=== PATIENT | male | born 1955 | race African-American/Black ===

== ENCOUNTER 2018-11-12 16:50 | Inpatient (IN) | payer OTHER ==
[2018-11-12] MEDS ORDERED: IPRATROPIUM/ALBUTEROL 0.5-2.5 MG/3 ML AMPUL NEB ONE ×2 (17:29→18:33)
--- NOTE | 2018-11-12 17:31 | ER Document Report ---
ED Medical Screen (RME) - General Chief Complaint: Weakness Stated Complaint: WEAKNESS Time Seen by Provider: 11/12/18 17:28 Mode of Arrival: Ambulatory Information source: Patient TRAVEL OUTSIDE OF THE [place] IN LAST 30 DAYS: No - HPI Patient complains to provider of: YOUNG Notes: 11/12/18 17:29 Patient here with complaints of cough for very long time and feeling short of breath for the last 2 days. No chest pain. Patient is a smoker. He denies any recent long trips or surgeries, leg pain or leg swelling, active cancer, history of DVT or PE. Exam Patient with some tachypnea slight increased work of breathing. Expiratory wheezing noted throughout with some crackles in the bases. Tachycardia. Plan CBC, CMP, troponin, CPK, CK-MB, chest x-ray, EKG duo nebs. Patient was noted to be hypoxic in the lower 80s, he was placed on 4 L nasal cannula, his O2 saturations did improve to the lower 90s. Patient was taken immediately back to her room for further evaluation and may An initial examination was made on the patient as part of the triage process, and it was determined a more comprehensive evaluation was necessary. Initial labs were ordered and patient was transferred to another provider in the ED who assumed care and finished evaluation and plan. - Related Data Allergies/Adverse Reactions: No Known Allergies Allergy (Unverified 11/12/18 16:52) Physical Exam - Vital signs Vitals: Temp Pulse Resp BP Pulse Ox 98.7 F 124 H 26 H 124/78 83 L 11/12/18 17:15 11/12/18 17:15 11/12/18 17:15 11/12/18 17:15 11/12/18 17:15 Course - Vital Signs Vital signs: Temp Pulse Resp BP Pulse Ox 98.7 F 124 H 26 H 124/78 83 L 11/12/18 17:15 11/12/18 17:15 11/12/18 17:15 11/12/18 17:15 11/12/18 17:15
--- NOTE | 2018-11-12 18:12 | RADIOLOGY REPORT (SQ) ---
EXAM DESCRIPTION: CHEST SINGLE VIEW COMPLETED DATE/TIME: 11/12/2018 5:47 pm REASON FOR STUDY: hypoxia COMPARISON: None. EXAM PARAMETERS: NUMBER OF VIEWS: One view. TECHNIQUE: Single frontal radiographic view of the chest acquired. RADIATION DOSE: NA LIMITATIONS: None. FINDINGS: LUNGS AND PLEURA: Ill-defined opacification in the lung bases, right more than left. MEDIASTINUM AND HILAR STRUCTURES: No masses. Contour normal. HEART AND VASCULAR STRUCTURES: Heart normal in size. Normal vasculature. BONES: No acute findings. HARDWARE: None in the chest. OTHER: No other significant finding. IMPRESSION: Cannot exclude bilateral pneumonia. TECHNICAL DOCUMENTATION: JOB ID: [id number] [employer]- All Rights Reserved Reading location - IP/workstation name: [email or web address]
[2018-11-12 18:14] LABS: HEMATOCRIT 37.1 % (37.9-51.0); MEAN CORPUSCULAR HEMOGLOBIN 30.5 pg (27.0-33.4); MEAN CORPUSCULAR VOLUME 87 fl (80-97); PLATELET COUNT 189 10^3/uL (150-450); RED BLOOD COUNT 4.25 10^6/uL (4.35-5.55); WHITE BLOOD COUNT 12.8 10^3/uL (4.0-10.5)
[2018-11-12 18:34] LABS: ABSOLUTE LYMPHOCYTES# (MANUAL) 0.9 10^3/uL (0.5-4.7); ABSOLUTE MONOCYTES # (MANUAL) 0.5 10^3/uL (0.1-1.4); ABSOLUTE NEUTROPHILS# (MANUAL) 11.4 10^3/uL (1.7-8.2); BASOPHILS % (MANUAL) 0 % (0-2); EOSINOPHILS % (MANUAL) 0 % (0-6); LYMPHOCYTES % (MANUAL) 6 % (13-45); METAMYELOCYTES % (MANUAL) 1 % (0); MONOCYTES % (MANUAL) 4 % (3-13); SEGMENTED NEUTROPHILS % (MAN) 73 % (42-78); TOTAL CELLS COUNTED 100
[2018-11-12] MEDS ORDERED: METHYLPREDNISOLONE INJ 125 MG/2 ML SDV IV ONE ×2 (18:34→23:00)
[2018-11-12] MEDS ORDERED: CEFTRIAXONE INJ 1000 MG VIAL IV ONE (18:34)
[2018-11-12] MEDS ORDERED: NORMAL SALINE 1000 ML 1,000 ML IV ONE (18:34)
[2018-11-12 18:36] LABS: ANISOCYTOSIS 1+; TOXIC VACUOLATION PRESENT
[2018-11-12 18:37] LABS: PLATELET COMMENT ADEQUATE; PLATELET LARGE PRESENT
[2018-11-12 18:38] LABS: TOXIC GRANULATION SLIGHT
[2018-11-12 18:39] LABS: BAND NEUTROPHILS % (MANUAL) 15 % (3-5)
--- NOTE | 2018-11-12 19:49 | EKG REPORT ---
SEVERITY:- ABNORMAL ECG - SINUS TACHYCARDIA BORDERLINE LEFT AXIS DEVIATION BORDERLINE R WAVE PROGRESSION, ANTERIOR LEADS PROLONGED QT INTERVAL : Confirmed by: Gregoria Mathew MD 12-Nov-2018 19:48:36
--- NOTE | 2018-11-12 20:00 | ER Document Report ---
ED General - General Chief Complaint: Weakness Stated Complaint: WEAKNESS Time Seen by Provider: 11/12/18 17:28 Mode of Arrival: Ambulatory Information source: Patient, Relative Notes: 63-year-old male with hypertension presents with complaint of weakness, productive cough and shortness of breath. Patient states cough has been present for several weeks but he became short of breath over the last 2 days. Upon arrival patient was found to be hypoxic and is currently requiring 4 L of oxygen to maintain appropriate oxygen saturation. Patient does continue to smoke approximately 1 pack/day. is at the bedside and states patient has had decrease in appetite. TRAVEL OUTSIDE OF THE [place] IN LAST 30 DAYS: No - HPI Onset: Other Onset/Duration: Persistent, Worse Quality of pain: No pain Associated symptoms: Productive cough, Shortness of breath, Weakness. denies: Chest pain, Fever, Sweating Exacerbated by: Walking, Coughing Relieved by: Denies Similar symptoms previously: No Recently seen / treated by doctor: No - Related Data Allergies/Adverse Reactions: No Known Allergies Allergy (Unverified 11/12/18 16:52) Past Medical History - General Information source: Patient - Social History Smoking Status: Current Every Day Smoker Frequency of alcohol use: None Drug Abuse: None Lives with: Family, Spouse/Significant other Family History: Reviewed & Not Pertinent Patient has suicidal ideation: No Patient has homicidal ideation: No - Past Medical History Cardiac Medical History: Reports: Hx Hypertension Renal/ Medical History: Denies: Hx Peritoneal Dialysis Review of Systems - Review of Systems Notes: REVIEW OF SYSTEMS: CONSTITUTIONAL : Denies fever, chills, or sweats. Denies recent illness. Denies weight loss, recent hospitalizations. EENT: Denies visual changes, eye pain. Denies sore throat, oral lesions, difficulty swallowing. CARDIOVASCULAR: Denies chest pain. Denies palpitations. Denies lower extremity edema. RESPIRATORY: + cough. + shortness of breath, wheezing. GASTROINTESTINAL: Denies abdominal pain or distention. Denies nausea, vomiting, or diarrhea. Denies blood in vomitus, stools, or per rectum. Denies black, tarry stools. Denies constipation. GENITOURINARY: Denies difficulty urinating, painful urination, frequency, blood in urine, testicular pain or penile discharge. MUSCULOSKELETAL: Denies back or neck pain or stiffness. Denies joint pain or swelling. SKIN: Denies rash, lesions or sores. HEMATOLOGIC : Denies easy bruising or bleeding. LYMPHATIC: Denies swollen glands. NEUROLOGICAL: Denies confusion or altered mental status. Denies loss of consciousness. Denies dizziness or lightheadedness. Denies headache. Denies paralysis. Denies problems difficulty with ambulation, slurred speech. Denies sensory loss, numbness, or tingling. Denies seizures. PSYCHIATRIC: Denies anxiety or stress. Denies depression, suicidal ideation, or Physical Exam - Vital signs Vitals: Temp Pulse Resp BP Pulse Ox 98.7 F 124 H 26 H 124/78 83 L 11/12/18 17:15 11/12/18 17:15 11/12/18 17:15 11/12/18 17:15 11/12/18 17:15 - Notes Notes: PHYSICAL EXAMINATION: GENERAL: Well-appearing, well-nourished and in no acute distress. HEAD: Atraumatic, normocephalic. EYES: Pupils equal round and reactive to light, extraocular movements intact, sclera anicteric, conjunctiva are normal. ENT: Nares patent, oropharynx clear without exudates. Moist mucous membranes. NECK: Normal range of motion, supple without lymphadenopathy LUNGS: Bilateral rhonchi, no increased work of breathing, no accessory muscle use, on nasal cannula, initially hypoxic HEART: Tachycardic, regular rhythm without murmurs. ABDOMEN: Soft, nontender, nondistended abdomen. No guarding, no rebound. No masses appreciated. Musculoskeletal: Normal range of motion, no pitting or edema. No cyanosis. NEUROLOGICAL: Cranial nerves grossly intact. Normal speech, normal gait. Normal sensory, motor exams PSYCH: Normal mood, normal affect. SKIN: Warm, Dry, normal turgor, no rashes or lesions noted. Course - Re-evaluation Re-evalutation: Laboratory 11/12/18 11/12/18 11/12/18 17:49 17:49 17:49 WBC 12.8 H RBC 4.25 L Hgb 13.0 L Hct 37.1 L MCV 87 MCH 30.5 MCHC 35.0 RDW 16.0 H Plt Count 189 Total Counted 100 Seg Neutrophils % Not Reportable Seg Neuts % (Manual) 73 Band Neutrophils % 15 H Lymphocytes % Not Reportable Lymphocytes % (Manual) 6 L Atypical Lymphs % 1 Monocytes % Not Reportable Monocytes % (Manual) 4 Eosinophils % Not Reportable Eosinophils % (Manual) 0 Basophils % Not Reportable Basophils % (Manual) 0 Metamyelocytes % 1 H Absolute Neutrophils Not Reportable Abs Neuts (Manual) 11.4 H Absolute Lymphocytes Not Reportable Abs Lymphs (Manual) 0.9 Absolute Monocytes Not Reportable Abs Monocytes (Manual) 0.5 Absolute Eosinophils Not Reportable Absolute Eos (Manual) 0.0 Absolute Basophils Not Reportable Abs Basophils (Manual) 0.0 Toxic Granulation SLIGHT Toxic Vacuolation PRESENT Large Platelets PRESENT Platelet Comment ADEQUATE Anisocytosis 1+ Sodium Cancelled Potassium Cancelled Chloride Cancelled Carbon Dioxide Cancelled Anion Gap Cancelled BUN Cancelled Creatinine Cancelled Est GFR ( Amer) Cancelled Est GFR (Non-Af Amer) Cancelled Glucose Cancelled Calcium Cancelled Total Bilirubin Cancelled Direct Bilirubin Cancelled Neonat Total Bilirubin Cancelled Neonat Direct Bilirubin Cancelled Neonat Indirect Bili Cancelled AST Cancelled ALT Cancelled Alkaline Phosphatase Cancelled Creatine Kinase Cancelled CK-MB (CK-2) Cancelled Troponin I Cancelled Total Protein Cancelled Albumin Cancelled 11/12/18 11/12/18 19:32 19:32 WBC RBC Hgb Hct MCV MCH MCHC RDW Plt Count Total Counted Seg Neutrophils % Seg Neuts % (Manual) Band Neutrophils % Lymphocytes % Lymphocytes % (Manual) Atypical Lymphs % Monocytes % Monocytes % (Manual) Eosinophils % Eosinophils % (Manual) Basophils % Basophils % (Manual) Metamyelocytes % Absolute Neutrophils Abs Neuts (Manual) Absolute Lymphocytes Abs Lymphs (Manual) Absolute Monocytes Abs Monocytes (Manual) Absolute Eosinophils Absolute Eos (Manual) Absolute Basophils Abs Basophils (Manual) Toxic Granulation Toxic Vacuolation Large Platelets Platelet Comment Anisocytosis Sodium 116.6 L* Potassium 3.7 Chloride 84 L Carbon Dioxide 19 L Anion Gap 14 BUN 8 Creatinine 0.44 L Est GFR ( Amer) > 60 Est GFR (Non-Af Amer) > 60 Glucose 128 H Calcium 8.6 Total Bilirubin 1.1 Direct Bilirubin 0.6 H Neonat Total Bilirubin Not Reportable Neonat Direct Bilirubin Not Reportable Neonat Indirect Bili Not Reportable AST 78 H ALT 39 Alkaline Phosphatase 200 H Creatine Kinase 217 H CK-MB (CK-2) 1.78 Troponin I 0.025 Total Protein 6.8 Albumin 2.9 L Chest X-Ray 11/12/18 17:28 IMPRESSION: Cannot exclude bilateral pneumonia. Chest/Abdomen CTA 11/12/18 20:00 IMPRESSION: Negative for pulmonary embolus, thoracic aortic aneurysm, or dissection. Extensive reticulonodular changes bilaterally consistent with small/reactive airway disease. More dense consolidative changes in the lung bases, likely reflecting pneumonia. Recommend follow-up to ensure resolution. Mild emphysematous changes. Partial visualization of branching lucencies in the liver, likely reflecting pneumobilia. Portal venous gas is felt unlikely, correlate with any history of instrumentation. TECHNICAL DOCUMENTATION: Quality ID # 436: Final reports with documentation of one or more dose reduction techniques (e.g., Automated exposure control, adjustment of the mA and/or kV according to patient size, use of iterative reconstruction technique) copyright 2011 [employer]- All Rights Reserved Temp Pulse Resp BP Pulse Ox 98.7 F 124 H 31 H 114/84 91 L 11/12/18 17:15 11/12/18 17:15 11/13/18 02:01 11/13/18 02:00 11/13/18 01:46 11/13/18 02:31 63-year-old male with hypertension presents with complaint of weakness, productive cough and shortness of breath. Patient states cough has been present for several weeks but he became short of breath over the last 2 days. Upon arrival patient was found to be hypoxic. Patient was placed on nasal cannula and wax pumper. Patient did receive breathing treatments, ceftriaxone, IV fluids. CBC does show a leukocytosis with a bandemia. CMP does show hyponatremia with a sodium of 116. Patient also has mild elevation in his liver enzymes. Patient and family did not inform me that the patient is a daily drinker. Nursing reported that the patient drinks 1-240 ounce beers daily. Upon my exam he is alert, awake, without tremors or tachycardia. Patient did receive thiamine, folic acid and Valium during his ED course. Patient was accepted for admission to the [facility] by Dr. Stanton. During the patient's ED course he continued to be hypoxic despite nasal cannula and he was placed on CPAP which did improve his oxygenation. He has had several episodes of hypoxia which self resolve when the patient is sat up and stimulated. VBG is within normal limits. CTA was obtained and showed no evidence of PE, does show pneumonia. Patient has not had any hospitalizations within the last 90 days. - Vital Signs Vital signs: Temp Pulse Resp BP Pulse Ox 98.7 F 124 H 34 H 84/59 L 91 L 11/12/18 17:15 11/12/18 17:15 11/13/18 01:05 11/13/18 01:05 11/13/18 01:05 - Laboratory Result Diagrams: 11/12/18 17:49 11/12/18 19:32 Laboratory results interpreted by me: 11/12/18 11/12/18 17:49 19:32 WBC 12.8 H RBC 4.25 L Hgb 13.0 L Hct 37.1 L RDW 16.0 H Band Neutrophils % 15 H Lymphocytes % (Manual) 6 L Metamyelocytes % 1 H Abs Neuts (Manual) 11.4 H Sodium 116.6 L* Chloride 84 L Carbon Dioxide 19 L Creatinine 0.44 L Glucose 128 H Direct Bilirubin 0.6 H AST 78 H Alkaline Phosphatase 200 H Creatine Kinase 217 H Albumin 2.9 L - Diagnostic Test Radiology reviewed: Image reviewed, Reports reviewed - EKG Interpretation by Me EKG shows normal: Sinus rhythm Rate: Tachycardia When compared to previous EKG there are: Previous EKG unavailable Critical Care Note - Critical Care Note Total time excluding time spent on procedures (mins): 45 - Minutes of critical care time spent in direct contact evaluating and reevaluating the patient, treating symptoms, reviewing labs and studies and speaking with family and consultants excluding any procedures Discharge - Discharge Clinical Impression: Hypoxia, Hyponatremia, Hypoalbuminemia, Bandemia, Acute respiratory failure with hypoxia, Tobacco use disorder, severe, dependence Acute respiratory failure Qualifiers: Respiratory failure complication: hypoxia Qualified Code(s): J96.01 - Acute respiratory failure with hypoxia Pneumonia Qualifiers: Pneumonia type: due to unspecified organism Laterality: bilateral Lung location: unspecified part of lung Qualified Code(s): J18.9 - Pneumonia, unspecified organism Alcohol dependence Qualifiers: Substance use status: unspecified alcohol-induced disorder Qualified Code(s): F10.29 - Alcohol dependence with unspecified alcohol-induced disorder Condition: Fair Disposition: ADMITTED INPATIENT Admitting Provider: Maximino (Hospitalist) Unit Admitted: [facility]
[2018-11-12 20:15] LABS: ALANINE AMINOTRANSFERASE 39 U/L (21-72); ALBUMIN 2.9 g/dL (3.5-5.0); ALKALINE PHOSPHATASE 200 U/L (38-126); ANION GAP 14 (5-19); ASPARTATE AMINO TRANSFERASE 78 U/L (17-59); BILIRUBIN,DIRECT 0.6 mg/dL (0.0-0.4); BILIRUBIN,TOTAL 1.1 mg/dL (0.2-1.3); BLOOD UREA NITROGEN 8 mg/dL (7-20); CALCIUM 8.6 mg/dL (8.4-10.2); CARBON DIOXIDE 19 mmol/L (22-30); CHLORIDE 84 mmol/L (98-107); CREATINE KINASE 217 U/L (55-170); GLUCOSE 128 mg/dL (75-110); POTASSIUM 3.7 mmol/L (3.6-5.0); TOTAL PROTEIN 6.8 g/dL (6.3-8.2)
[2018-11-12 20:24] LABS: SODIUM 116.6 mmol/L (137-145)
[2018-11-12 20:25] LABS: CREATINE KINASE MB 1.78 ng/mL (<4.55); TROPONIN I 0.025 ng/mL
[2018-11-12 21:37] LABS: VENOUS BLOOD BASE EXCESS -2.6 mmol/L; VENOUS BLOOD HCO3 22.4 mmol/L (20-32); VENOUS BLOOD PCO2 39.9 mmHg (35-63); VENOUS BLOOD PH 7.37 (7.30-7.42)
[2018-11-12] MEDS ORDERED: MAG HYDROX/AL HYDROX/SIMETH SUSP 30 ML UDCUP PO PRN (22:02)
[2018-11-12] MEDS ORDERED: ONDANSETRON HCL INJ/PF 4 MG/2 ML SDV IV PRN (22:02)
[2018-11-12] MEDS ORDERED: NORMAL SALINE 1000 ML 1,000 ML IV PRN (22:02)
[2018-11-12] MEDS ORDERED: MAGNESIUM HYDROXIDE SUSP 30 ML UDCUP PO PRN (22:02)
[2018-11-12] MEDS ORDERED: ZOLPIDEM TARTRATE 5 MG TABLET PO PRN (22:02)
[2018-11-12] MEDS ORDERED: NICOTINE 21 MG/24 HR PATCH.TD24 TD PRN (22:07)
[2018-11-12] MEDS ORDERED: ALBUTEROL SULFATE 0.083% NEB 2.5 MG/3 ML AMPUL NEB PRN (22:07)
[2018-11-12] MEDS ORDERED: ACETAMINOPHEN 325 MG TABLET PO PRN (22:07)
[2018-11-12] MEDS ORDERED: NALBUPHINE HCL INJ 10 MG/1 ML AMPULE IV PRN (22:07)
[2018-11-12] MEDS ORDERED: FAMOTIDINE 20 MG TABLET PO ONE (23:00)
--- NOTE | 2018-11-12 23:01 | RADIOLOGY REPORT (SQ) ---
EXAM DESCRIPTION: CT CHEST ANGIOGRAPHY WITHOUT THEN WITH IV CONTRAST COMPLETED DATE/TME: 11/12/2018 20:00 CLINICAL HISTORY: 63 years, Male, tachy sob COMPARISON: None. TECHNIQUE: [id number] Images stored on PACS. All CT scanners at this facility use dose modulation, iterative reconstruction, and/or weight based dosing when appropriate to reduce radiation dose to as low as reasonably achievable (ALARA). Axial CTA images with coronal and sagittal MIPS reconstructions. [facility]: Dose Right [facility]: CareDose [facility]: Dose Right [facility]: Teradose 4D [facility]: [employer] LIMITATIONS: None. FINDINGS: The mediastinal vasculature enhances normally. No intraluminal filling defect to suggest pulmonary embolus. Negative for thoracic aortic aneurysm or dissection. Nonenlarged mediastinal and hilar lymph nodes bilaterally. The heart and pericardium are unremarkable. Limited evaluation of the upper abdomen shows diffuse heterogeneity of the liver. Branching lucencies throughout the liver likely reflects nonspecific pneumobilia. Portal venous gas. Loss likely. Correlate with any history of recent instrumentation. Osseous structures demonstrate no gross acute abnormality. Mild emphysematous changes. Extensive reticulonodular changes are noted bilaterally with more dense consolidative changes in each lung base consistent with pneumonia. No effusion. IMPRESSION: Negative for pulmonary embolus, thoracic aortic aneurysm, or dissection. Extensive reticulonodular changes bilaterally consistent with small/reactive airway disease. More dense consolidative changes in the lung bases, likely reflecting pneumonia. Recommend follow-up to ensure resolution. Mild emphysematous changes. Partial visualization of branching lucencies in the liver, likely reflecting pneumobilia. Portal venous gas is felt unlikely, correlate with any history of instrumentation. TECHNICAL DOCUMENTATION: Quality ID # [id number]: Final reports with documentation of one or more dose reduction techniques (e.g., Automated exposure control, adjustment of the mA and/or kV according to patient size, use of iterative reconstruction technique) copyright 2010 [employer]- All Rights Reserved
[2018-11-12] MEDS ORDERED: DIAZEPAM 5 MG TABLET PO ONE (23:41)
[2018-11-12] MEDS ORDERED: THIAMINE HCL 100 MG TABLET PO ONE (23:41)
[2018-11-12] MEDS ORDERED: FOLIC ACID 1 MG TABLET PO ONE (23:41)
[2018-11-13] MEDS: IPRATROPIUM BROMIDE 0.02% NEB 0.5 MG/2.5 ML AMPUL NEB SCH ×3 (00:03→16:14)
[2018-11-13] MEDS: LEVALBUTEROL HCL NEB 1.25 MG/3 ML AMPUL NEB SCH ×3 (00:03→16:14)
[2018-11-13 02:24] LABS: ARTERIAL BLOOD BASE EXCESS -0.5 mmol/L; ARTERIAL BLOOD H2CO3 0.97 mmol/L (1.05-1.35); ARTERIAL BLOOD HCO3 22.7 mmol/L (20-24); ARTERIAL BLOOD O2 SATURATION 98.3 % (94-98); ARTERIAL BLOOD PCO2 32.3 mmHg (35-45); ARTERIAL BLOOD PH 7.46 (7.35-7.45); ARTERIAL BLOOD PO2 111.2 mmHg (80-100); ARTERIAL BLOOD TOTAL CO2 23.7 mmol/L (23-27)
--- NOTE | 2018-11-13 05:11 | PDOC H&P ---
History of Present Illness Admission Date/PCP: 11/12/18 20:52 ALEENA WERNER MD Patient complains of: Cough History of Present Illness: THOMAS HARDWICK is a 63 year old male who presented to the emergency room with a several week history of cough. Patient admits a nonproductive cough for the last several weeks rapidly worsing to severe over the last 2 days with accom panying dyspnea and dyspnea on exertion, as well as becoming productive of small amounts of purulent sputum. He admits moderate decrease in appetite and mild to moderate generalized weakness as associated symptoms for this illness. He admits to smoking 1 pack of cigarettes daily. He denies prior similar episodes and has not identified any aggravating or ameliorating factors for his cough. In the emergency room he was found to have acute respiratory failure requiring oxygen at 4 L/min via nasal cannula to maintain an O2 saturation greater than 93%. Chest x-ray showed a bilateral pneumonia and patient was also noted to have a sodium of 116. He was subsequently admitted to the hospital for further evaluation and treatment. Past Medical History Cardiac Medical History: Reports: Hypertension Denies: Congestive Heart Failure, Coronary Artery Disease, Myocardial Infarction Pulmonary Medical History: Denies: Asthma, Chronic Obstructive Pulmonary Disease (COPD) EENT Medical History: Denies: Cataracts Neurological Medical History: Denies: Hemorrhagic CVA, Ischemic CVA, Seizures Endocrine Medical History: Denies: Diabetes Mellitus Type 1, Diabetes Mellitus Type 2 Renal/ Medical History: Denies: Chronic Kidney Disease, Nephrolithiasis Malignancy Medical History: Reports: None GI Medical History: Denies: Cirrhosis, Hepatitis Musculoskeltal Medical History: Denies: Arthritis, Gout Skin Medical History: Denies: Eczema, Psoriasis Psychiatric Medical History: Reports: Alcohol Dependency, Tobacco Dependency Denies: Substance Abuse Traumatic Medical History: Reports: None Hematology: Denies: Anemia, Bleeding Tendencies Infectious Medical History: Reports: None Past Surgical History Past Surgical History: Reports: Other - Abdominal surgery "unsure of nature of procedure". Social History Information Source: Patient Lives with: Spouse/Significant other Smoking Status: Current Every Day Smoker Frequency of Alcohol Use: Heavy - 4-6 40oz beers daily Hx Recreational Drug Use: No Drugs: None Hx Prescription Drug Abuse: No - Advance Directive Resuscitation Status: Full Code Surrogate healthcare decision maker:: Agueda Hardwick his daughter Family History Family History: Hypertension. denies: CAD, DM, Malignancy Parental Family History Reviewed: Yes Children Family History Reviewed: No Sibling(s) Family History Reviewed.: Yes Medication/Allergy Allergies/Adverse Reactions: No Known Allergies Allergy (Unverified 11/12/18 16:52) Review of Systems Constitutional: PRESENT: as per HPI, anorexia, weakness. ABSENT: chills, fever(s) Eyes: ABSENT: visual disturbances, other - Ocular pain Ears: ABSENT: hearing changes, other - Ear pain Nose, Mouth, and Throat: ABSENT: mouth pain, sore throat Cardiovascular: PRESENT: as per HPI, dyspnea on exertion. ABSENT: chest pain, edema, orthropnea, palpitations Respiratory: PRESENT: as per HPI, cough, dyspnea, sputum. ABSENT: hemoptysis Gastrointestinal: ABSENT: abdominal pain, constipation, diarrhea, nausea, vomiting Genitourinary: ABSENT: dysuria, hematuria Musculoskeletal: ABSENT: deformity, joint swelling Integumentary: ABSENT: pruritus, rash Neurological: ABSENT: confusion, convulsions, focal weakness, memory loss Psychiatric: ABSENT: anxiety, depression Endocrine: ABSENT: cold intolerance, heat intolerance Hematologic/Lymphatic: ABSENT: easy bleeding, easy bruising Physical Exam Vital Signs: Temp Pulse Resp BP Pulse Ox 98.7 F 124 H 26 H 124/78 94 11/12/18 17:15 11/12/18 17:15 11/12/18 17:15 11/12/18 17:15 11/12/18 18:24 Intake & Output 11/10/18 11/11/18 11/12/18 23:59 23:59 23:59 Weight 47.5 kg General appearance: PRESENT: no acute distress, cooperative Head exam: PRESENT: atraumatic, normocephalic Eye exam: ABSENT: conjunctival injection, scleral icterus Ear exam: PRESENT: normal external ear exam. ABSENT: drainage Mouth exam: PRESENT: dry mucosa, neck supple Neck exam: ABSENT: thyromegaly, tracheal deviation Respiratory exam: PRESENT: decreased breath sounds - Mildly decreased breath sounds consistent with mild to moderate COPD, prolonged expiratory phas, symmetrical, unlabored, wheezes - Mild end expiratory wheezes throughout all nina. ABSENT: rales, rhonchi Cardiovascular exam: PRESENT: RRR. ABSENT: clicks, gallop, rubs Pulses: PRESENT: normal radial pulses, normal dorsalis pedis pul Vascular exam: PRESENT: normal capillary refill. ABSENT: pallor GI/Abdominal exam: PRESENT: normal bowel sounds, soft Rectal exam: PRESENT: deferred Extremities exam: ABSENT: joint swelling, pedal edema Musculoskeletal exam: ABSENT: deformity, dislocation Neurological exam: PRESENT: alert, awake, oriented to person, oriented to place, oriented to time, oriented to situation, CN II-XII grossly intact. ABSENT: motor sensory deficit Psychiatric exam: PRESENT: appropriate affect, normal mood Skin exam: PRESENT: dry, intact, warm. ABSENT: jaundice, rash, urticaria Results Laboratory Results: 11/12/18 17:49 11/12/18 19:32 11/12/18 11/12/18 11/12/18 17:49 17:49 19:32 WBC 12.8 H RBC 4.25 L Hgb 13.0 L Hct 37.1 L MCV 87 MCH 30.5 MCHC 35.0 RDW 16.0 H Plt Count 189 Seg Neutrophils % Not Reportable Lymphocytes % Not Reportable Monocytes % Not Reportable Eosinophils % Not Reportable Basophils % Not Reportable Absolute Neutrophils Not Reportable Absolute Lymphocytes Not Reportable Absolute Monocytes Not Reportable Absolute Eosinophils Not Reportable Absolute Basophils Not Reportable VBG pH VBG pCO2 VBG HCO3 VBG Base Excess Sodium Cancelled 116.6 L* Potassium Cancelled 3.7 Chloride Cancelled 84 L Carbon Dioxide Cancelled 19 L Anion Gap Cancelled 14 BUN Cancelled 8 Creatinine Cancelled 0.44 L Est GFR ( Amer) Cancelled > 60 Est GFR (Non-Af Amer) Cancelled > 60 Glucose Cancelled 128 H Calcium Cancelled 8.6 Total Bilirubin Cancelled 1.1 AST Cancelled 78 H ALT Cancelled 39 Alkaline Phosphatase Cancelled 200 H Total Protein Cancelled 6.8 Albumin Cancelled 2.9 L 11/12/18 21:20 WBC RBC Hgb Hct MCV MCH MCHC RDW Plt Count Seg Neutrophils % Lymphocytes % Monocytes % Eosinophils % Basophils % Absolute Neutrophils Absolute Lymphocytes Absolute Monocytes Absolute Eosinophils Absolute Basophils VBG pH 7.37 VBG pCO2 39.9 VBG HCO3 22.4 VBG Base Excess -2.6 Sodium Potassium Chloride Carbon Dioxide Anion Gap BUN Creatinine Est GFR ( Amer) Est GFR (Non-Af Amer) Glucose Calcium Total Bilirubin AST ALT Alkaline Phosphatase Total Protein Albumin 11/12/18 11/12/18 11/12/18 17:49 17:49 19:32 Creatine Kinase Cancelled 217 H CK-MB (CK-2) Cancelled Troponin I Cancelled 11/12/18 19:32 Creatine Kinase CK-MB (CK-2) 1.78 Troponin I 0.025 Impressions: Chest X-Ray 11/12/18 17:28 IMPRESSION: Cannot exclude bilateral pneumonia. Assessment and Plan - Diagnosis (1) Acute respiratory failure with hypoxia Is this a current diagnosis for this admission?: Yes Plan: Patient will be treated with supplemental oxygen at 2-4 L/min per nasal cannula noted to maintain an O2 sat 90-94%. (2) Pneumonia Qualifiers: Pneumonia type: due to unspecified organism Laterality: bilateral Lung location: unspecified part of lung Qualified Code(s): J18.9 - Pneumonia, unspecified organism Is this a current diagnosis for this admission?: Yes Plan: Patient be treated with Rocephin 1 g IV every 24 hours and Zithromax 500 mg IV every 24 hours. He will be placed on a pulmonary nebulizer toilet utilizing Xopenex and Atrovent as well as budesonide and as needed albuterol. He will also be treated with Solu-Medrol 125 mg IV initially followed by 40 mg IV every 6 hours for 3 doses. (3) Hyponatremia Is this a current diagnosis for this admission?: Yes Plan: Patient be treated with IV normal saline and his electronic values be checked on a regular daily basis. (4) Tobacco use disorder, severe, dependence Is this a current diagnosis for this admission?: Yes Plan: Patient will have made available a nicotine patch. Smoking cessation is advised and counseled briefly. - Time Time Spent with patient: 25-34 minutes Smoking Cessation Education: 3 to 10 minutes Medications reviewed and adjusted accordingly: Yes Anticipated discharge: Home - Inpatient Certification Based on my medical assessment, after consideration of the patient's comorbid ities, presenting symptoms, or acuity I expect that the services needed warrant INPATIENT care.: Yes I certify that my determination is in accordance with my understanding of Medicare's requirements for reasonable and necessary INPATIENT services [42 CFR 412.3e].: Yes Medical Necessity: Need Close Monitoring Due to Risk of Patient Decompensation, Need For IV Fluids, Need For Continuous Telemetry Monitoring, Need for Nebulizer Therapy and Monitoring of Response, Need for IV Antibiotics, Risk of Complication if Not Cared For in Hospital
[2018-11-13] MEDS: METHYLPREDNISOLONE INJ 40 MG/1 ML SDV IV SCH ×3 (06:15→17:33)
[2018-11-13] MEDS: HEPARIN SOD (PORCINE) 5,000 UNIT/ML 1 ML SYRINGE SUBCUT SCH ×3 (06:16→21:09)
[2018-11-13 06:27] LABS: HEMATOCRIT 33.2 % (37.9-51.0); HEMOGLOBIN 11.4 g/dL (13.5-17.0); MEAN CORPUSCULAR HEMOGLOBIN 30.6 pg (27.0-33.4); MEAN CORPUSCULAR HGB CONC 34.4 g/dL (32.0-36.0); MEAN CORPUSCULAR VOLUME 89 fl (80-97); PLATELET COUNT 176 10^3/uL (150-450); RED BLOOD COUNT 3.73 10^6/uL (4.35-5.55); RED CELL DISTRIBUTION WIDTH 15.6 % (11.5-14.0); WHITE BLOOD COUNT 11.3 10^3/uL (4.0-10.5)
[2018-11-13 06:30] LABS: ANION GAP 13 (5-19); BLOOD UREA NITROGEN 9 mg/dL (7-20); CALCIUM 9.2 mg/dL (8.4-10.2); CARBON DIOXIDE 26 mmol/L (22-30); CHLORIDE 89 mmol/L (98-107); GLUCOSE 219 mg/dL (75-110); POTASSIUM 3.7 mmol/L (3.6-5.0); SODIUM 127.7 mmol/L (137-145)
[2018-11-13 06:44] LABS: FREE T3 2.36 pg/mL (2.77-5.27); FREE T4 (FREE THYROXINE) 1.65 ng/dL (0.78-2.19)
[2018-11-13 06:57] LABS: THYROID STIMULATING HORMONE 1.05 uIU/mL (0.47-4.68)
[2018-11-13 07:05] LABS: ABSOLUTE LYMPHOCYTES# (MANUAL) 0.2 10^3/uL (0.5-4.7); ABSOLUTE MONOCYTES # (MANUAL) 1.2 10^3/uL (0.1-1.4); ABSOLUTE NEUTROPHILS# (MANUAL) 9.8 10^3/uL (1.7-8.2); BAND NEUTROPHILS % (MANUAL) 3 % (3-5); BASOPHILS % (MANUAL) 0 % (0-2); EOSINOPHILS % (MANUAL) 0 % (0-6); LYMPHOCYTES % (MANUAL) 2 % (13-45); MONOCYTES % (MANUAL) 11 % (3-13); SEGMENTED NEUTROPHILS % (MAN) 84 % (42-78); TOTAL CELLS COUNTED 100
[2018-11-13 07:07] LABS: HYPOCHROMASIA 1+; PLATELET COMMENT ADEQUATE; POLYCHROMASIA 1+
[2018-11-13 07:14] LABS: APPEARANCE,URINE CLEAR; BILIRUBIN,URINE NEGATIVE (NEGATIVE); COLOR,URINE YELLOW; GLUCOSE, URINE 150 mg/dL (NEGATIVE); KETONES,URINE TRACE mg/dL (NEGATIVE); LEUKOCYTE ESTERASE,URINE NEGATIVE (NEGATIVE); NITRITE,URINE NEGATIVE (NEGATIVE); PROTEIN,URINE 30 mg/dL (NEGATIVE); URINE SPECIFIC GRAVITY 1.032; UROBILINOGEN,URINE NEGATIVE mg/dL (<2.0)
[2018-11-13] MEDS: BUDESONIDE NEB 0.5 MG/2 ML AMPUL NEB SCH ×2 (08:22→20:10)
[2018-11-13] MEDS: DOCUSATE SODIUM 100 MG CAPSULE PO SCH ×2 (09:53→17:36)
[2018-11-13] MEDS: FAMOTIDINE 20 MG TABLET PO SCH ×2 (09:53→21:09)
[2018-11-13 11:22] LABS: PATH REVIEW PATHOLOGIST REVIEWED
[2018-11-13] MEDS ORDERED: LORAZEPAM INJ 2 MG/1 ML VIAL IV PRN (12:50)
--- NOTE | 2018-11-13 20:51 | PDOC PROGRESS REPORT ---
Subjective Progress Note for:: 11/13/18 Subjective:: Patient currently resting on BiPAP and appears comfortable. Reason For Visit: BILATERAL PNEUMONIA Physical Exam Vital Signs: Temp Pulse Resp BP Pulse Ox 98.7 F 98 32 H 139/91 H 100 11/12/18 17:15 11/13/18 08:22 11/13/18 08:22 11/13/18 06:00 11/13/18 08:22 Intake & Output 11/12/18 11/13/18 11/14/18 06:59 06:59 06:59 Intake Total 1000 Balance 1000 Weight 47.5 kg General appearance: PRESENT: no acute distress, cooperative, well-developed Head exam: PRESENT: atraumatic, normocephalic Ear exam: PRESENT: normal external ear exam Mouth exam: PRESENT: other - Did not remove BiPAP mask Respiratory exam: PRESENT: rhonchi - Bilaterally, symmetrical, unlabored. ABSENT: prolonged expiratory phas, rales, wheezes Cardiovascular exam: PRESENT: RRR, +S1, +S2 GI/Abdominal exam: PRESENT: normal bowel sounds, soft. ABSENT: distended, tenderness Rectal exam: PRESENT: deferred Gentrourinary exam: ABSENT: indwelling catheter Extremities exam: ABSENT: joint swelling, pedal edema Neurological exam: PRESENT: alert, awake, oriented to person, oriented to place, oriented to time, oriented to situation Psychiatric exam: PRESENT: appropriate affect. ABSENT: agitated, anxious Focused psych exam: ABSENT: delusional, restlessness Results Laboratory Results: 11/13/18 05:35 11/13/18 05:35 11/12/18 11/12/18 11/12/18 17:49 17:49 19:32 WBC 12.8 H RBC 4.25 L Hgb 13.0 L Hct 37.1 L MCV 87 MCH 30.5 MCHC 35.0 RDW 16.0 H Plt Count 189 Seg Neutrophils % Not Reportable Lymphocytes % Not Reportable Monocytes % Not Reportable Eosinophils % Not Reportable Basophils % Not Reportable Absolute Neutrophils Not Reportable Absolute Lymphocytes Not Reportable Absolute Monocytes Not Reportable Absolute Eosinophils Not Reportable Absolute Basophils Not Reportable Carbonic Acid HCO3/H2CO3 Ratio ABG pH ABG pCO2 ABG pO2 ABG HCO3 ABG O2 Saturation ABG Base Excess VBG pH VBG pCO2 VBG HCO3 VBG Base Excess FiO2 Sodium Cancelled 116.6 L* Potassium Cancelled 3.7 Chloride Cancelled 84 L Carbon Dioxide Cancelled 19 L Anion Gap Cancelled 14 BUN Cancelled 8 Creatinine Cancelled 0.44 L Est GFR ( Amer) Cancelled > 60 Est GFR (Non-Af Amer) Cancelled > 60 Glucose Cancelled 128 H Calcium Cancelled 8.6 Magnesium Total Bilirubin Cancelled 1.1 AST Cancelled 78 H ALT Cancelled 39 Alkaline Phosphatase Cancelled 200 H Total Protein Cancelled 6.8 Albumin Cancelled 2.9 L TSH Free T4 Free T3 pg/mL Urine Color Urine Appearance Urine pH Ur Specific Hildreth Urine Protein Urine Glucose (UA) Urine Ketones Urine Blood Urine Nitrite Ur Leukocyte Esterase Urine WBC (Auto) Urine RBC (Auto) 11/12/18 11/13/18 11/13/18 21:20 02:16 05:35 WBC 11.3 H RBC 3.73 L Hgb 11.4 L Hct 33.2 L MCV 89 MCH 30.6 MCHC 34.4 RDW 15.6 H Plt Count 176 Seg Neutrophils % Not Reportable Lymphocytes % Not Reportable Monocytes % Not Reportable Eosinophils % Not Reportable Basophils % Not Reportable Absolute Neutrophils Not Reportable Absolute Lymphocytes Not Reportable Absolute Monocytes Not Reportable Absolute Eosinophils Not Reportable Absolute Basophils Not Reportable Carbonic Acid 0.97 L HCO3/H2CO3 Ratio 23:1 ABG pH 7.46 H ABG pCO2 32.3 L ABG pO2 111.2 H ABG HCO3 22.7 ABG O2 Saturation 98.3 H ABG Base Excess -0.5 VBG pH 7.37 VBG pCO2 39.9 VBG HCO3 22.4 VBG Base Excess -2.6 FiO2 55% Sodium Potassium Chloride Carbon Dioxide Anion Gap BUN Creatinine Est GFR ( Amer) Est GFR (Non-Af Amer) Glucose Calcium Magnesium Total Bilirubin AST ALT Alkaline Phosphatase Total Protein Albumin TSH Free T4 Free T3 pg/mL Urine Color Urine Appearance Urine pH Ur Specific Hildreth Urine Protein Urine Glucose (UA) Urine Ketones Urine Blood Urine Nitrite Ur Leukocyte Esterase Urine WBC (Auto) Urine RBC (Auto) 11/13/18 11/13/18 11/13/18 05:35 05:35 06:37 WBC RBC Hgb Hct MCV MCH MCHC RDW Plt Count Seg Neutrophils % Lymphocytes % Monocytes % Eosinophils % Basophils % Absolute Neutrophils Absolute Lymphocytes Absolute Monocytes Absolute Eosinophils Absolute Basophils Carbonic Acid HCO3/H2CO3 Ratio ABG pH ABG pCO2 ABG pO2 ABG HCO3 ABG O2 Saturation ABG Base Excess VBG pH VBG pCO2 VBG HCO3 VBG Base Excess FiO2 Sodium 127.7 L Potassium 3.7 Chloride 89 L Carbon Dioxide 26 Anion Gap 13 BUN 9 Creatinine 0.48 L Est GFR ( Amer) > 60 Est GFR (Non-Af Amer) > 60 Glucose 219 H Calcium 9.2 Magnesium 2.3 Total Bilirubin AST ALT Alkaline Phosphatase Total Protein Albumin TSH 1.05 Free T4 1.65 Free T3 pg/mL 2.36 L Urine Color YELLOW Urine Appearance CLEAR Urine pH 6.0 Ur Specific Hildreth 1.032 Urine Protein 30 H Urine Glucose (UA) 150 H Urine Ketones TRACE H Urine Blood MODERATE H Urine Nitrite NEGATIVE Ur Leukocyte Esterase NEGATIVE Urine WBC (Auto) 3 Urine RBC (Auto) 0 11/12/18 11/12/18 11/12/18 17:49 17:49 19:32 Creatine Kinase Cancelled 217 H CK-MB (CK-2) Cancelled Troponin I Cancelled 11/12/18 11/12/18 19:32 23:23 Creatine Kinase CK-MB (CK-2) 1.78 Troponin I 0.025 0.015 Impressions: Chest X-Ray 11/12/18 17:28 IMPRESSION: Cannot exclude bilateral pneumonia. Chest/Abdomen CTA 11/12/18 20:00 IMPRESSION: Negative for pulmonary embolus, thoracic aortic aneurysm, or dissection. Extensive reticulonodular changes bilaterally consistent with small/reactive airway disease. More dense consolidative changes in the lung bases, likely reflecting pneumonia. Recommend follow-up to ensure resolution. Mild emphysematous changes. Partial visualization of branching lucencies in the liver, likely reflecting pneumobilia. Portal venous gas is felt unlikely, correlate with any history of instrumentation. TECHNICAL DOCUMENTATION: Quality ID # 436: Final reports with documentation of one or more dose reduction techniques (e.g., Automated exposure control, adjustment of the mA and/or kV according to patient size, use of iterative reconstruction technique) copyright 2011 [employer]- All Rights Reserved Assessment and Plan - Diagnosis (1) Acute respiratory failure with hypoxia Is this a current diagnosis for this admission?: Yes Plan: Patient will be treated with supplemental oxygen at 2-4 L/min per nasal cannula noted to maintain an O2 sat 90-94%. 11/13/2018-the patient is on BiPAP but is improved. His breathing is comfortable. We will wean the BiPAP as tolerated. (2) Pneumonia Qualifiers: Pneumonia type: due to unspecified organism Laterality: bilateral Lung location: unspecified part of lung Qualified Code(s): J18.9 - Pneumonia, unspecified organism Is this a current diagnosis for this admission?: Yes Plan: Patient be treated with Rocephin 1 g IV every 24 hours and Zithromax 500 mg IV every 24 hours. He will be placed on a pulmonary nebulizer toilet utilizing Xopenex and Atrovent as well as budesonide and as needed albuterol. He will also be treated with Solu-Medrol 125 mg IV initially followed by 40 mg IV every 6 hours for 3 doses. 11/13/2018-the patient is on the antibiotic therapy as noted above. He seems much more comfortable this morning. Continue antibiotic therapy as ordered. Monitor diagnostic imaging as required. The patient does use alcohol regularly. Is not clear if this was aspiration related however it is bilateral. Unfortunately sputum was not available to send to the laboratory. It is most likely a staph or streptococcus pneumonia. (3) Hyponatremia Is this a current diagnosis for this admission?: Yes Plan: Patient be treated with IV normal saline and his electronic values be checked on a regular daily basis. 11/13/2018-with the normal saline the patient's serum sodium is up to 127. The pneumonia is most likely the causative agent for the hyponatremia. We have no older laboratory studies to compare. Continue to monitor serum sodium levels. (4) Alcohol dependence Qualifiers: Substance use status: unspecified alcohol-induced disorder Qualified Code(s): F10.29 - Alcohol dependence with unspecified alcohol-induced disorder Is this a current diagnosis for this admission?: Yes Plan: 11/13/2018-the patient drinks multiple beers daily. IV lorazepam will be available as needed. (5) Tobacco use disorder, severe, dependence Is this a current diagnosis for this admission?: Yes Plan: Patient will have made available a nicotine patch. Smoking cessation is advised and counseled briefly. 11/13/2018-continue nicotine patch. - Time Time Spent with patient: 15-24 minutes Smoking Cessation Education: 3 to 10 minutes Medications reviewed and adjusted accordingly: Yes
[2018-11-13] MEDS ORDERED: AZITHROMYCIN INJ 500 MG VIAL IV PRN (22:05)
[2018-11-13] MEDS ORDERED: AZITHROMYCIN INJ 500 MG VIAL IV ONE (22:19)
[2018-11-13] MEDS: AZITHROMYCIN 500 MG in DEXTROSE 5%-WATER 250 ML IV SCH (22:30)
[2018-11-14] MEDS: HEPARIN SOD (PORCINE) 5,000 UNIT/ML 1 ML SYRINGE SUBCUT SCH ×3 (05:00→21:30)
[2018-11-14 05:03] LABS: ABSOLUTE LYMPHOCYTES (AUTO) 0.6 10^3/uL (0.5-4.7); ABSOLUTE MONOCYTES (AUTO) 1.1 10^3/uL (0.1-1.4); ABSOLUTE NEUT (AUTO) 8.9 10^3/uL (1.7-8.2); BASOPHILS % (AUTO) 0.2 % (0-2); HEMATOCRIT 30.8 % (37.9-51.0); HEMOGLOBIN 10.5 g/dL (13.5-17.0); MEAN CORPUSCULAR HEMOGLOBIN 30.4 pg (27.0-33.4); MEAN CORPUSCULAR HGB CONC 33.9 g/dL (32.0-36.0); MEAN CORPUSCULAR VOLUME 90 fl (80-97); MONOCYTES % (AUTO) 10.7 % (3-13); PLATELET COUNT 172 10^3/uL (150-450); RED BLOOD COUNT 3.43 10^6/uL (4.35-5.55); SEGMENTED NEUTROPHILS % (AUTO) 83.1 % (42-78); TOTAL CELLS COUNTED % (AUTO) 100 %; WHITE BLOOD COUNT 10.7 10^3/uL (4.0-10.5)
[2018-11-14 05:46] LABS: ANION GAP 10 (5-19); BLOOD UREA NITROGEN 11 mg/dL (7-20); CALCIUM 9.6 mg/dL (8.4-10.2); CARBON DIOXIDE 25 mmol/L (22-30); CHLORIDE 96 mmol/L (98-107); GLUCOSE 191 mg/dL (75-110); SODIUM 130.8 mmol/L (137-145)
[2018-11-14] MEDS: IPRATROPIUM BROMIDE 0.02% NEB 0.5 MG/2.5 ML AMPUL NEB SCH ×2 (08:43)
[2018-11-14] MEDS: BUDESONIDE NEB 0.5 MG/2 ML AMPUL NEB SCH ×2 (08:43→21:04)
[2018-11-14] MEDS: LEVALBUTEROL HCL NEB 1.25 MG/3 ML AMPUL NEB SCH ×2 (08:43)
[2018-11-14] MEDS: POTASSIUM CHLORIDE 10 MEQ CAPSULE.ER PO SCH ×3 (08:57→17:28)
[2018-11-14] MEDS: NICOTINE 21 MG/24 HR PATCH.TD24 TD SCH (09:05)
[2018-11-14] MEDS: FAMOTIDINE 20 MG TABLET PO SCH ×2 (09:13→21:28)
[2018-11-14] MEDS: DOCUSATE SODIUM 100 MG CAPSULE PO SCH ×2 (09:13→17:28)
[2018-11-14] MEDS ORDERED: METHYLPREDNISOLONE INJ 125 MG/2 ML SDV IV ONE (10:03)
--- NOTE | 2018-11-14 11:47 | PDOC PROGRESS REPORT ---
Subjective Progress Note for:: 11/14/18 Subjective:: 63 y.o. M with a PMH of HTN and 30 pack year smoking history. Admitted to hospitalist service for B/L PNA. The patient is seen this morning on rounds with daughter at the bedside. Resting comfortably in bed on NC. Wheezing auscultated in all lung nina. Patient does not appear to be in distress. No peripheral or central cyanosis. Plan to continue IV abx, nebulizer treatments. Initiated IV steroids. Likely d/c home in 24-48 hours. Reason For Visit: BILATERAL PNEUMONIA Physical Exam Vital Signs: Temp Pulse Resp BP Pulse Ox 97.4 F 74 18 154/81 H 95 11/14/18 08:21 11/14/18 08:43 11/14/18 08:43 11/14/18 08:21 11/14/18 08:43 Intake & Output 11/13/18 11/14/18 11/15/18 06:59 06:59 06:59 Intake Total 1000 2095 Output Total 600 Balance 1000 1495 Weight 47.5 kg 46.4 kg General appearance: PRESENT: thin Head exam: PRESENT: atraumatic Eye exam: PRESENT: conjunctiva pink, PERRLA Mouth exam: PRESENT: moist, tongue midline Respiratory exam: PRESENT: symmetrical, unlabored, wheezes Cardiovascular exam: PRESENT: RRR Pulses: PRESENT: normal radial pulses, normal dorsalis pedis pul Vascular exam: PRESENT: normal capillary refill GI/Abdominal exam: PRESENT: normal bowel sounds, soft. ABSENT: tenderness Rectal exam: PRESENT: deferred Extremities exam: PRESENT: full ROM Musculoskeletal exam: PRESENT: ambulatory, full ROM Neurological exam: PRESENT: alert, awake, oriented to person, oriented to place, oriented to time, oriented to situation Psychiatric exam: PRESENT: appropriate affect Skin exam: PRESENT: dry, intact, normal color Results Laboratory Results: 11/14/18 04:52 11/14/18 04:52 11/14/18 11/14/18 04:52 04:52 WBC 10.7 H RBC 3.43 L Hgb 10.5 L Hct 30.8 L MCV 90 MCH 30.4 MCHC 33.9 RDW 16.0 H Plt Count 172 Seg Neutrophils % 83.1 H Lymphocytes % 6.0 L Monocytes % 10.7 Eosinophils % 0.0 Basophils % 0.2 Absolute Neutrophils 8.9 H Absolute Lymphocytes 0.6 Absolute Monocytes 1.1 Absolute Eosinophils 0.0 Absolute Basophils 0.0 Sodium 130.8 L Potassium 3.0 L* Chloride 96 L Carbon Dioxide 25 Anion Gap 10 BUN 11 Creatinine 0.40 L Est GFR ( Amer) > 60 Est GFR (Non-Af Amer) > 60 Glucose 191 H Calcium 9.6 Magnesium 2.8 H 11/12/18 11/12/18 11/12/18 17:49 17:49 19:32 Creatine Kinase Cancelled 217 H CK-MB (CK-2) Cancelled Troponin I Cancelled 11/12/18 11/12/18 19:32 23:23 Creatine Kinase CK-MB (CK-2) 1.78 Troponin I 0.025 0.015 Impressions: Chest X-Ray 11/12/18 17:28 IMPRESSION: Cannot exclude bilateral pneumonia. Chest/Abdomen CTA 11/12/18 20:00 IMPRESSION: Negative for pulmonary embolus, thoracic aortic aneurysm, or dissection. Extensive reticulonodular changes bilaterally consistent with small/reactive airway disease. More dense consolidative changes in the lung bases, likely reflecting pneumonia. Recommend follow-up to ensure resolution. Mild emphysematous changes. Partial visualization of branching lucencies in the liver, likely reflecting pneumobilia. Portal venous gas is felt unlikely, correlate with any history of instrumentation. TECHNICAL DOCUMENTATION: Quality ID # 436: Final reports with documentation of one or more dose reduction techniques (e.g., Automated exposure control, adjustment of the mA and/or kV according to patient size, use of iterative reconstruction technique) copyright 2011 [employer] All Rights Reserved Status: Imported from PACS Assessment and Plan - Diagnosis (1) Acute respiratory failure with hypoxia Is this a current diagnosis for this admission?: Yes Plan: Secondary from PNA and possible COPD/emphysema Initially on BIPAP able to wean to NC Patient will be treated with supplemental oxygen at 2-4 L/min per nasal cannula to maintain an O2 sat 90-94% Attempt to wean from O2 today (2) Pneumonia Qualifiers: Pneumonia type: due to unspecified organism Laterality: bilateral Lung location: unspecified part of lung Qualified Code(s): J18.9 - Pneumonia, unspecified organism Is this a current diagnosis for this admission?: Yes Plan: Community acquired PNA Rocephin 1 g IV every 24 hours and Zithromax 500 mg IV every 24 hours. Nebulizer treatments scheduled and PRN Scheduled IV steroids Chronic ETOH use, unclear if this is aspiration PNA No sputum or blood cultures Likely staph or streptococcus PNA (3) Alcohol dependence Qualifiers: Substance use status: unspecified alcohol-induced disorder Qualified Code(s): F10.29 - Alcohol dependence with unspecified alcohol-induced disorder Is this a current diagnosis for this admission?: Yes Plan: Chronic ETOH use IV lorazepam for withdrawal symptoms (4) Hyponatremia Is this a current diagnosis for this admission?: Yes Plan: Improving 127-->130 Continue IV normal saline Follow daily chemistries The pneumonia is most likely the causative agent for the hyponatremia. (5) Tobacco use disorder, severe, dependence Is this a current diagnosis for this admission?: Yes Plan: Nicotine patch - Time Time Spent with patient: 15-24 minutes Medications reviewed and adjusted accordingly: Yes Anticipated discharge: Home Within: within 48 hours - Inpatient Certification Based on my medical assessment, after consideration of the patient's comorbidities, presenting symptoms, or acuity I expect that the services needed warrant INPATIENT care.: Yes I certify that my determination is in accordance with my understanding of Medicare's requirements for reasonable and necessary INPATIENT services [42 CFR 412.3e].: Yes Medical Necessity: Risk of Complication if Not Cared For in Hospital
[2018-11-14] MEDS ORDERED: NALBUPHINE HCL INJ 10 MG/1 ML AMPULE IV PRN (12:00)
[2018-11-14] MEDS ORDERED: LEVALBUTEROL HCL NEB 1.25 MG/3 ML AMPUL NEB PRN ×2 (12:05→12:30)
[2018-11-14] MEDS: IPRATROPIUM/ALBUTEROL 0.5-2.5 MG/3 ML AMPUL NEB SCH ×3 (12:57→21:04)
[2018-11-14] MEDS: FOLIC ACID 1 MG TABLET PO SCH (13:12)
[2018-11-14] MEDS: THIAMINE HCL 100 MG TABLET PO SCH (13:12)
[2018-11-14] MEDS: CEFTRIAXONE SODIUM 1,000 MG in DEXTROSE 5%-WATER 50 ML IV SCH (13:12)
[2018-11-14] MEDS: AZITHROMYCIN 500 MG in DEXTROSE 5%-WATER 250 ML IV SCH (21:29)
[2018-11-14] MEDS: METHYLPREDNISOLONE INJ 40 MG/1 ML SDV IV SCH ×2 (21:29→22:33)
[2018-11-15] MEDS: IPRATROPIUM/ALBUTEROL 0.5-2.5 MG/3 ML AMPUL NEB SCH ×6 (00:18→20:04)
[2018-11-15 05:03] LABS: ABSOLUTE LYMPHOCYTES (AUTO) 0.9 10^3/uL (0.5-4.7); ABSOLUTE MONOCYTES (AUTO) 1.1 10^3/uL (0.1-1.4); ABSOLUTE NEUT (AUTO) 7.2 10^3/uL (1.7-8.2); BASOPHILS % (AUTO) 0.5 % (0-2); HEMATOCRIT 31.5 % (37.9-51.0); HEMOGLOBIN 10.7 g/dL (13.5-17.0); LYMPHOCYTES % (AUTO) 10.1 % (13-45); MEAN CORPUSCULAR HEMOGLOBIN 30.1 pg (27.0-33.4); MEAN CORPUSCULAR HGB CONC 33.8 g/dL (32.0-36.0); MEAN CORPUSCULAR VOLUME 89 fl (80-97); MONOCYTES % (AUTO) 11.5 % (3-13); PLATELET COUNT 169 10^3/uL (150-450); RED BLOOD COUNT 3.54 10^6/uL (4.35-5.55); RED CELL DISTRIBUTION WIDTH 16.2 % (11.5-14.0); SEGMENTED NEUTROPHILS % (AUTO) 77.9 % (42-78); TOTAL CELLS COUNTED % (AUTO) 100 %; WHITE BLOOD COUNT 9.3 10^3/uL (4.0-10.5)
[2018-11-15] MEDS: HEPARIN SOD (PORCINE) 5,000 UNIT/ML 1 ML SYRINGE SUBCUT SCH ×3 (05:14→21:33)
[2018-11-15] MEDS: METHYLPREDNISOLONE INJ 40 MG/1 ML SDV IV SCH ×3 (05:14→21:34)
[2018-11-15 05:30] LABS: ANION GAP 10 (5-19); BLOOD UREA NITROGEN 14 mg/dL (7-20); CALCIUM 9.8 mg/dL (8.4-10.2); CARBON DIOXIDE 26 mmol/L (22-30); CHLORIDE 95 mmol/L (98-107); GLUCOSE 146 mg/dL (75-110); SODIUM 130.8 mmol/L (137-145)
[2018-11-15] MEDS: BUDESONIDE NEB 0.5 MG/2 ML AMPUL NEB SCH ×2 (08:26→20:04)
[2018-11-15] MEDS ORDERED: HYDRALAZINE HCL INJ/PF 20 MG/1 ML SDV IV PRN (09:12)
[2018-11-15] MEDS ORDERED: METOPROLOL TARTRATE PF/INJ 5 MG/5 ML SDV IV PRN (09:12)
[2018-11-15] MEDS: DOCUSATE SODIUM 100 MG CAPSULE PO SCH ×2 (09:51→17:42)
[2018-11-15] MEDS: FAMOTIDINE 20 MG TABLET PO SCH ×2 (09:51→21:34)
[2018-11-15] MEDS: POTASSIUM CHLORIDE 10 MEQ CAPSULE.ER PO SCH ×3 (09:51→17:42)
[2018-11-15] MEDS: THIAMINE HCL 100 MG TABLET PO SCH (09:52)
[2018-11-15] MEDS: FOLIC ACID 1 MG TABLET PO SCH (09:52)
[2018-11-15] MEDS: NICOTINE 21 MG/24 HR PATCH.TD24 TD SCH (09:52)
[2018-11-15] MEDS: AMLODIPINE BESYLATE 10 MG TABLET PO SCH (12:07)
[2018-11-15] MEDS: LOSARTAN POTASSIUM 50 MG TABLET PO SCH (12:07)
[2018-11-15] MEDS: CEFTRIAXONE SODIUM 1,000 MG in DEXTROSE 5%-WATER 50 ML IV SCH (13:17)
--- NOTE | 2018-11-15 21:26 | PDOC PROGRESS REPORT ---
Subjective Progress Note for:: 11/15/18 Subjective:: 63 y.o. M with a PMH of HTN and 30 pack year smoking history. Admitted to hospitalist service for B/L PNA. The patient is seen this morning on rounds with [id number] at the bedside. Resting comfortably in bed on RA. Wheezing auscultated in lower lung nina. Pat ient does not appear to be in distress. No peripheral or central cyanosis. Patient states he wants to go home. Unfotunately, when ambulating today, the patient's SPO2 dropped to low 80 %. He was informed that he would need to stay in the hospital for another 24 hours due to persistent hypoxia. Plan to continue IV abx, nebulizer treatments. Initiated IV steroids. Likely d/c home in 24-48 hours. Reason For Visit: BILATERAL PNEUMONIA Physical Exam Vital Signs: Temp Pulse Resp BP Pulse Ox 97.4 F 99 20 150/93 H 96 11/15/18 16:55 11/15/18 20:12 11/15/18 20:04 11/15/18 16:55 11/15/18 20:04 Intake & Output 11/14/18 11/15/18 11/16/18 06:59 06:59 06:59 Intake Total 2095 2350 572 Output Total 600 Balance 1495 2350 572 Weight 46.4 kg 47.2 kg General appearance: PRESENT: no acute distress, thin Head exam: PRESENT: atraumatic, normocephalic Eye exam: PRESENT: conjunctiva pink, EOMI, PERRLA. ABSENT: scleral icterus Ear exam: PRESENT: normal external ear exam Mouth exam: PRESENT: moist, tongue midline Neck exam: ABSENT: carotid bruit, JVD, lymphadenopathy, thyromegaly Respiratory exam: PRESENT: symmetrical, unlabored, wheezes. ABSENT: rales, rhonchi Cardiovascular exam: PRESENT: RRR. ABSENT: diastolic murmur, rubs, systolic murmur Pulses: PRESENT: normal radial pulses, normal dorsalis pedis pul Vascular exam: PRESENT: normal capillary refill GI/Abdominal exam: PRESENT: normal bowel sounds, soft. ABSENT: distended, guarding, mass, organolmegaly, rebound, tenderness Rectal exam: PRESENT: deferred Extremities exam: PRESENT: full ROM. ABSENT: calf tenderness, clubbing, pedal edema Neurological exam: PRESENT: alert, awake, oriented to person, oriented to place, oriented to time, oriented to situation Psychiatric exam: PRESENT: appropriate affect Skin exam: PRESENT: dry, intact, warm. ABSENT: cyanosis, rash Results Laboratory Results: 11/15/18 04:35 11/15/18 04:35 11/15/18 11/15/18 04:35 04:35 WBC 9.3 RBC 3.54 L Hgb 10.7 L Hct 31.5 L MCV 89 MCH 30.1 MCHC 33.8 RDW 16.2 H Plt Count 169 Seg Neutrophils % 77.9 Lymphocytes % 10.1 L Monocytes % 11.5 Eosinophils % 0.0 Basophils % 0.5 Absolute Neutrophils 7.2 Absolute Lymphocytes 0.9 Absolute Monocytes 1.1 Absolute Eosinophils 0.0 Absolute Basophils 0.0 Sodium 130.8 L Potassium 4.0 D Chloride 95 L Carbon Dioxide 26 Anion Gap 10 BUN 14 Creatinine 0.43 L Est GFR ( Amer) > 60 Est GFR (Non-Af Amer) > 60 Glucose 146 H Calcium 9.8 Magnesium 2.4 H 11/12/18 11/12/18 11/12/18 17:49 17:49 19:32 Creatine Kinase Cancelled 217 H CK-MB (CK-2) Cancelled Troponin I Cancelled 11/12/18 11/12/18 19:32 23:23 Creatine Kinase CK-MB (CK-2) 1.78 Troponin I 0.025 0.015 Impressions: Chest X-Ray 11/12/18 17:28 IMPRESSION: Cannot exclude bilateral pneumonia. Chest/Abdomen CTA 11/12/18 20:00 IMPRESSION: Negative for pulmonary embolus, thoracic aortic aneurysm, or dissection. Extensive reticulonodular changes bilaterally consistent with small/reactive airway disease. More dense consolidative changes in the lung bases, likely reflecting pneumonia. Recommend follow-up to ensure resolution. Mild emphysematous changes. Partial visualization of branching lucencies in the liver, likely reflecting pneumobilia. Portal venous gas is felt unlikely, correlate with any history of instrumentation. TECHNICAL DOCUMENTATION: Quality ID # 436: Final reports with documentation of one or more dose reduction techniques (e.g., Automated exposure control, adjustment of the mA and/or kV according to patient size, use of iterative reconstruction technique) copyright 2011 [employer]- All Rights Reserved Status: Imported from PACS Assessment and Plan - Diagnosis (1) Acute respiratory failure with hypoxia Is this a current diagnosis for this admission?: Yes Plan: Secondary from PNA and possible COPD/emphysema Initially on BIPAP able to wean to NC Patient will be treated with supplemental oxygen at 2-4 L/min per nasal cannula to maintain an O2 sat 90-94% Failed ambulation on RA. SPO2 dropped to 83%. Will remain inpatient another 24 hours for persistent hypoxia. (2) Pneumonia Qualifiers: Pneumonia type: due to unspecified organism Laterality: bilateral Lung location: unspecified part of lung Qualified Code(s): J18.9 - Pneumonia, unspecified organism Is this a current diagnosis for this admission?: Yes Plan: Community acquired PNA Rocephin 1 g IV every 24 hours and Zithromax 500 mg IV every 24 hours. Nebulizer treatments scheduled and PRN Scheduled IV steroids Chronic ETOH use, unclear if this is aspiration PNA No sputum or blood cultures Likely staph or streptococcus PNA Add spiriva and serevent to daily regimen (3) Alcohol dependence Qualifiers: Substance use status: unspecified alcohol-induced disorder Qualified Code(s): F10.29 - Alcohol dependence with unspecified alcohol-induced disorder Is this a current diagnosis for this admission?: Yes Plan: Chronic ETOH use IV lorazepam for withdrawal symptoms (4) Hyponatremia Is this a current diagnosis for this admission?: Yes Plan: Improving 127-->130 Continue IV normal saline Follow daily chemistries The pneumonia is most likely the causative agent for the hyponatremia. (5) Tobacco use disorder, severe, dependence Is this a current diagnosis for this admission?: Yes Plan: Nicotine patch - Time Time Spent with patient: 15-24 minutes Medications reviewed and adjusted accordingly: Yes Anticipated discharge: Home Within: within 48 hours - Inpatient Certification Based on my medical assessment, after consideration of the patient's comorbidities, presenting symptoms, or acuity I expect that the services needed warrant INPATIENT care.: Yes I certify that my determination is in accordance with my understanding of Medicare's requirements for reasonable and necessary INPATIENT services [42 CFR 412.3e].: Yes Medical Necessity: Need for Nebulizer Therapy and Monitoring of Response, Risk of Complication if Not Cared For in Hospital
[2018-11-15] MEDS: AZITHROMYCIN 500 MG in DEXTROSE 5%-WATER 250 ML IV SCH (21:34)
[2018-11-15] MEDS ORDERED: SALMETEROL XINAFOATE DISKUS 50 MCG/1 DOSE 28 DOSE IH ONE (23:09)
[2018-11-15] MEDS: SALMETEROL XINAFOATE DISKUS 50 MCG/1 DOSE 28 DOSE IH SCH (23:16)
[2018-11-16] MEDS: IPRATROPIUM/ALBUTEROL 0.5-2.5 MG/3 ML AMPUL NEB SCH ×5 (00:21→15:52)
[2018-11-16] MEDS: METHYLPREDNISOLONE INJ 40 MG/1 ML SDV IV SCH ×2 (05:14→15:31)
[2018-11-16] MEDS: HEPARIN SOD (PORCINE) 5,000 UNIT/ML 1 ML SYRINGE SUBCUT SCH ×2 (05:15→15:29)
[2018-11-16] MEDS: BUDESONIDE NEB 0.5 MG/2 ML AMPUL NEB SCH (08:04)
[2018-11-16] MEDS: AMLODIPINE BESYLATE 10 MG TABLET PO SCH (09:09)
[2018-11-16] MEDS: LOSARTAN POTASSIUM 50 MG TABLET PO SCH (09:09)
[2018-11-16] MEDS: DOCUSATE SODIUM 100 MG CAPSULE PO SCH (09:09)
[2018-11-16] MEDS: THIAMINE HCL 100 MG TABLET PO SCH (09:09)
[2018-11-16] MEDS: NICOTINE 21 MG/24 HR PATCH.TD24 TD SCH (09:10)
[2018-11-16] MEDS: FOLIC ACID 1 MG TABLET PO SCH (09:10)
[2018-11-16] MEDS: SALMETEROL XINAFOATE DISKUS 50 MCG/1 DOSE 28 DOSE IH SCH (09:10)
[2018-11-16] MEDS: FAMOTIDINE 20 MG TABLET PO SCH (09:10)
[2018-11-16] MEDS: POTASSIUM CHLORIDE 10 MEQ CAPSULE.ER PO SCH ×2 (09:10→11:26)
[2018-11-16] MEDS ORDERED: TIOTROPIUM BROMIDE DPI 5 CAP/KIT (18 MCG/CAP) IH SCH (10:00)
[2018-11-16] MEDS ORDERED: CLONIDINE HCL 0.1 MG TABLET PO SCH (10:45)
[2018-11-16] MEDS: CEFTRIAXONE SODIUM 1,000 MG in DEXTROSE 5%-WATER 50 ML IV SCH (11:26)
[2018-11-16 16:38] VITALS: BP 143/92
--- NOTE | 2018-11-19 21:32 | PDOC DISCHARGE SUMMARY ---
General - Admit/Disc Date/PCP Admission Date/Primary Care Provider: 11/12/18 20:52 ALEENA WERNER MD Discharge Date: 11/16/18 - Discharge Diagnosis (1) Acute respiratory failure with hypoxia Is this a current diagnosis for this admission?: Yes (2) Pneumonia Is this a current diagnosis for this admission?: Yes (3) Alcohol dependence Is this a current diagnosis for this admission?: Yes (4) Hyponatremia Is this a current diagnosis for this admission?: Yes (5) Tobacco use disorder, severe, dependence Is this a current diagnosis for this admission?: Yes - Additional Information Resuscitation Status: Full Code Prescriptions: Clonidine HCl [Catapres 0.1 mg Tablet] 0.1 mg PO DAILY #30 tablet Ipratropium/Albuterol Sulfate [Duoneb 3 ml Ampul] 3 ml NEB RTQ4 #25 vial.neb Nicotine [Nicoderm 21 mg/24 Hr Transderm Patch] 1 patch TD DAILY #30 patch.td24 Salmeterol Xinafoate [Serevent Diskus 50 Mcg/Dose 28 Dose/Diskus] 50 mcg IH Q12 #1 disk Tiotropium [place] [Spiriva Handihaler 5 Cap/Kit (18 Mcg/Cap)] 1 cap IH DAILY #1 kit Home Medications: Amlodipine Besylate [Norvasc 10 mg Tablet] 10 mg PO DAILY 11/13/18 Compounding Vehicle Syrup No13 [Base, Pcca Ashleigh] 10 ml PO ASDIR PRN 11/13/18 Losartan Potassium [Cozaar 100 mg Tablet] 100 mg PO DAILY 11/13/18 Clonidine HCl [Catapres 0.1 mg Tablet] 0.1 mg PO DAILY #30 tablet 11/16/18 Ipratropium/Albuterol Sulfate [Duoneb 3 ml Ampul] 3 ml NEB RTQ4 #25 vial.neb 11/16/18 Nicotine [Nicoderm 21 mg/24 Hr Transderm Patch] 1 patch TD DAILY #30 patch.td24 11/16/18 Salmeterol Xinafoate [Serevent Diskus 50 Mcg/Dose 28 Dose/Diskus] 50 mcg IH Q12 #1 disk 11/16/18 Tiotropium [place] [Spiriva Handihaler 5 Cap/Kit (18 Mcg/Cap)] 1 cap IH DAILY #1 kit 04/20/19 History of Present Illness History of Present Illness: THOMAS SO is a 63 year old male who presented to the emergency room with a several week history of cough. Patient admits a nonproductive cough for the last several weeks rapidly worsening to severe over the last 2 days with accompanying dyspnea and dyspnea on exertion, as well as becoming productive of small amounts of purulent sputum. He admits moderate decrease in appetite and mild to moderate generalized weakness as associated symptoms for this illness. He admits to smoking 1 pack of cigarettes daily. He denies prior similar episodes and has not identified any aggravating or ameliorating factors for his cough. In the emergency room he was found to have acute respiratory failure requiring oxygen at 4 L/min via nasal cannula to maintain an O2 saturation greater than 93%. Chest x-ray showed a bilateral pneumonia and patient was also noted to have a sodium of 116. He was subsequently admitted to the hospital for further evaluation and treatment. Hospital Course Hospital Course: 63 y.o. M with a PMH of HTN and 30 pack year smoking history. Admitted to hospitalist service for B/L PNA seen on CXR. The patient briefly required BIPAP early in his hospital stay but was able to quickly wean to nasal cannula. He was treated with Rocephin and Azithromycin for community acquired PNA. Discussed the likelihood of COPD with the patient, given his long history of smoking. Offered smoking cessation counseling. Treatment for his COPD exacerbation (stemming from PNA) included IV steroids, scheduled and PRN nebulizer treatments, and BID Mucinex. He was noted to be mildly hypertensive despite receiving his home losartan and amlodipine. He was started on clonidine and BP control was achiev ed. On hospital day #3 the patient was able to ambulate around the unit (accompanied by staff and attached to PulseOx monitor) but his SPO2 dropped to low 80% while on room air. The patient was placed back on nasal cannula and offered a breathing treatment. Additionally, he was placed on long acting inhalers. On hospital day #4 the patient was able to ambulate without dropping his SPO2 while on room air. He was discharged home with prescriptions for spiriva, serevent and a nicotine patch. The patient had completed 5 today days (including his admission day) of antibiotics and did not require further antibiotic treatment. For further informatin regarding this patient's hospitalization, please refer to EMR. Physical Exam Vital Signs: Temp Pulse Resp BP Pulse Ox 97.4 F 80 20 143/92 H 100 11/16/18 16:34 11/16/18 16:34 11/16/18 16:34 11/16/18 16:34 11/16/18 16:34 General appearance: PRESENT: no acute distress, thin Head exam: PRESENT: atraumatic, normocephalic Eye exam: PRESENT: conjunctiva pink, EOMI, PERRLA. ABSENT: scleral icterus Ear exam: PRESENT: normal external ear exam Mouth exam: PRESENT: moist, tongue midline Neck exam: ABSENT: carotid bruit, JVD, lymphadenopathy, thyromegaly Respiratory exam: PRESENT: clear to auscultation jorge, symmetrical, unlabored. ABSENT: rales, rhonchi, wheezes Cardiovascular exam: PRESENT: RRR. ABSENT: diastolic murmur, rubs, systolic murmur Pulses: PRESENT: normal radial pulses, normal dorsalis pedis pul Vascular exam: PRESENT: normal capillary refill GI/Abdominal exam: PRESENT: normal bowel sounds, soft. ABSENT: distended, guarding, mass, organolmegaly, rebound, tenderness Rectal exam: PRESENT: deferred Extremities exam: PRESENT: full ROM. ABSENT: calf tenderness, clubbing, pedal edema Musculoskeletal exam: PRESENT: ambulatory, full ROM, normal inspection Neurological exam: PRESENT: alert, awake, oriented to person, oriented to place, oriented to time, oriented to situation. ABSENT: motor sensory deficit Psychiatric exam: PRESENT: appropriate affect, normal mood Skin exam: PRESENT: dry, intact, warm. ABSENT: cyanosis, rash Results Laboratory Results: 11/15/18 04:35 11/15/18 04:35 11/12/18 11/12/18 11/12/18 17:49 17:49 19:32 Creatine Kinase Cancelled 217 H CK-MB (CK-2) Cancelled Troponin I Cancelled 11/12/18 11/12/18 19:32 23:23 Creatine Kinase CK-MB (CK-2) 1.78 Troponin I 0.025 0.015 Impressions: Chest X-Ray 11/12/18 17:28 IMPRESSION: Cannot exclude bilateral pneumonia. Chest/Abdomen CTA 11/12/18 20:00 IMPRESSION: Negative for pulmonary embolus, thoracic aortic aneurysm, or dissection. Extensive reticulonodular changes bilaterally consistent with small/reactive airway disease. More dense consolidative changes in the lung bases, likely reflecting pneumonia. Recommend follow-up to ensure resolution. Mild emphysematous changes. Partial visualization of branching lucencies in the liver, likely reflecting pneumobilia. Portal venous gas is felt unlikely, correlate with any history of instrumentation. TECHNICAL DOCUMENTATION: Quality ID # 436: Final reports with documentation of one or more dose reduction techniques (e.g., Automated exposure control, adjustment of the mA and/or kV according to patient size, use of iterative reconstruction technique) copyright 2011 [employer]- All Rights Reserved Status: Imported from PACS Qualifiers - * PATIENT BEING DISCHARGED WITH ANY OF THE FOLLOWING DIAGNOSIS: No
== END 2018-11-16 18:16 | disposition home or self-care (01) | DRG 193 ==
LOC: EDBD → ER 16:50 → EH 20:52 → 3W 11-13 11:08
PROVIDERS: ADMIT Emergency Medicine; ATTEND Emergency Medicine
PROC: 3E0F73Z Introduction of Anti-inflammatory into Respiratory Tract, Via Natural or Artificial Opening (ICD-10-PCS; 2018-11-12)
PROC: 5A09457 Assistance with Respiratory Ventilation, 24-96 Consecutive Hours, Continuous Positive Airway Pressure (ICD-10-PCS; principal; 2018-11-13)
PROC: 5A09457 Assistance with Respiratory Ventilation, 24-96 Consecutive Hours, Continuous Positive Airway Pressure (ICD-10-PCS; 2018-11-15)
DX: J18.9 Pneumonia, unspecified organism (principal); J96.01 Acute respiratory failure with hypoxia; E87.1 Hypo-osmolality and hyponatremia; J44.1 Chronic obstructive pulmonary disease with (acute) exacerbation; J44.0 Chronic obstructive pulmonary disease with (acute) lower respiratory infection; F10.20 Alcohol dependence, uncomplicated; I10 Essential (primary) hypertension; F17.210 Nicotine dependence, cigarettes, uncomplicated; Z79.899 Other long term (current) drug therapy; Z82.49 Family history of ischemic heart disease and other diseases of the circulatory system
CPT/HCPCS: 36415; 71045; 71275; 80048; 80053; 81001; 82550; 82553; 82803; 83735; 84439; 84443; 84481; 84484; 85025; 93005; 93010; 94660; J0456; J0696; J1644; J2300; J2920; J2930; J3490; J7030; J7060; J7620

== ENCOUNTER → 2019-05-23 | Outpatient (CLI) | payer OTHER ==
--- NOTE | 2019-05-23 14:47 | RADIOLOGY REPORT (SQ) ---
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 Images reviewed with lung, soft tissue and bone windows. Reconstructed coronal and sagittal MPR and MIP images reviewed. All images stored on PACS. All CT scanners at this facility use dose modulation, iterative reconstruction, and/or weight based d osing when appropriate to reduce radiation dose to as low as reasonably achievable (ALARA). [facility]: Dose Right [facility]: CareDose [facility]: Dose Right [facility]: Teradose 4D [facility]: Zuu Onlnine CONTRAST TYPE AND DOSE: 80 mL IV Omnipaque 350- low osmolar. RENAL FUNCTION: Creatinine 0.7 RADIATION DOSE: 8 mGy . LIMITATIONS: None. FINDINGS: LUNGS AND PLEURA: Minimal stable right apical pleuroparenchymal scarring. Mild hyperinfla tion from obstructive disease. No focal infiltrates. No pleural effusion or pneumothorax. HILAR AND MEDIASTINAL STRUCTURES: No identified masses or abnormal nodes. HEART AND VASCULAR STRUCTURES: No aneurysm or dissection. No central pulmonary emboli. No pericardi al effusion. HARDWARE: None in the chest. UPPER ABDOMEN: Intrahepatic biliary air from biliary enteric anastomosis. Heavily calcified pancreat ic head. THYROID AND OTHER SOFT TISSUES: No masses. No adenopathy. BONES: No significant finding. OTHER: No other significant finding. IMPRESSION: No acute findings TECHNICAL DOCUMENTATION: JOB ID: [id number] Quality ID # 436: Final reports with documentation of one or more dose reduction techniques (e.g., Au tomated exposure control, adjustment of the mA and/or kV according to patient size, use of iterative reconstruction technique) 2010 [employer]- All Rights Reserved Reading location - IP/workstation name: [email or web address]
== END ==
LOC: RAD 12:54
PROVIDERS: ATTEND Radiology Radiation Oncology
DX: C07 Malignant neoplasm of parotid gland (principal)
CPT/HCPCS: 71260; 82565

== ENCOUNTER → 2019-05-24 | Outpatient (CLI) | payer OTHER | LOC: RAD 08:31 | PROVIDERS: ATTEND Radiology Radiation Oncology | DX: C07 Malignant neoplasm of parotid gland (principal) | CPT/HCPCS: 70543 ==

== ENCOUNTER → 2019-07-08 | Outpatient (CLI) | payer OTHER ==
--- NOTE | 2019-07-09 14:28 | RADIOLOGY REPORT (SQ) ---
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 RADIONUCLIDE AND DOSE: 10.4 mCi F18 FDG The route of agent administration: Intravenous FASTING BLOOD SUGAR: 74 mg/dl CONTRAST TYPE AND DOSE: No CT contrast given. TECHNIQUE: Blood glucose level was verified. Above dose of FDG was injected intravenously. 2-D seg mented attenuation correction images were obtained from the base of the skull to the midthighs. Nonc ontrast CT images were obtained for attenuation correction and fusion with emission images. CT image s were performed without oral or intravenous contrast and are not sensitive for parenchymal lesions. A series of overlapping emission PET images were obtained. Images reviewed and manipulated at [facility] work station by the radiologist. Images stored on PACS. LIMITATIONS: None. FINDINGS: HEAD AND NECK: Status post left parotidectomy. There are no areas of abnormal metabolic a ctivity in the soft tissues of the head and neck. CHEST: No areas of abnormal metabolic activity in the chest. ABDOMEN AND PELVIS: The liver demonstrates heterogeneous non focal FDG uptake with an average SUV of 1.7. There are postoperative findings in the upper abdomen that involve in part the creation of a he paticojejunostomy. There is an area of focal uptake in the mid abdomen (maximum SUV of 4.2) that in retrospect was present on the PET from 11/14/2015. No other areas of focal FDG uptake are identified. PROXIMAL LOWER EXTREMITIES: No areas of abnormal metabolic activity in the soft tissues of the lower extremities. BONES: No areas of abnormal metabolic activity in the imaged axial and appendicular skeleton. ADDITIONAL CT FINDINGS: The right maxillary sinus is opacified - correlate clinically to exclude an acute sinusitis. The pneumobilia in the left hepatic lobe is unchanged. The spleen is normal in size . The prostate gland is enlarged. The wall of the urinary bladder is thickened - the finding is non specific and in the setting of prostatomegaly could represent the sequela of chronic bladder outlet o bstruction. OTHER: No other findings. IMPRESSION: No metabolic evidence of recurrence. As described above, there are postoperative findin gs in the upper abdomen that involve in part the creation of a hepaticojejunostomy. The area of foca l uptake (maximum SUV of 4.2) in the pancreatic bed was present on the PET from 11/14/2015 and if clin ically warranted the abdomen could be further evaluated with a pancreatic-protocol CT or MRI. TECHNICAL DOCUMENTATION: JOB ID: [id number] [employer]- All Rights Reserved Reading location - IP/workstation name: [email or web address]
== END ==
LOC: RAD 10:00
PROVIDERS: ATTEND Radiology Radiation Oncology
DX: C07 Malignant neoplasm of parotid gland (principal)
CPT/HCPCS: 78814; A9552

== ENCOUNTER → 2019-12-30 | Outpatient (CLI) | payer MEDICARE, OTHER ==
--- NOTE | 2019-12-30 16:03 | RADIOLOGY REPORT (SQ) ---
EXAM DESCRIPTION: PET CT SKULL/THIGH IMAGES COMPLETED DATE/TIME: 12/30/2019 11:22 am REASON FOR STUDY: PAROTID CA (C07) C07 MALIGNANT NEOPLASM OF PAROTID GLAND COMPARISON: 11/14/2015, 07/08/2019 PET-CT. RADIONUCLIDE AND DOSE: 11/14/2015 mCi F18 FDG The route of agent administration: Intravenous FASTING BLOOD SUGAR: 102 mg/dl CONTRAST TYPE AND DOSE: No CT contrast given. TECHNIQUE: Blood glucose level was verified. Above dose of FDG was injected intravenously. 2-D seg mented attenuation correction images were obtained from the base of the skull to the midthighs. Nonc ontrast CT images were obtained for attenuation correction and fusion with emission images. CT image s were performed without oral or intravenous contrast and are not sensitive for parenchymal lesions. A series of overlapping emission PET images were obtained. Images reviewed and manipulated at [facility] work station by the radiologist. Images stored on PACS. LIMITATIONS: None. FINDINGS: HEAD AND NECK: Posttreatment changes from left parotidectomy. There is mild diffuse uptak e throughout the left conservation worker and neck musculature (max SUV 4.6 - 7.2) without CT correlate. Poss ibly treatment related for muscle injury/use. No other focal areas of abnormal FDG uptake within the head or neck. CHEST: No abnormal FDG uptake within the thorax. No acute intrathoracic findings. Scattered coronar y atherosclerosis. ABDOMEN AND PELVIS: Postsurgical changes from the hepaticojejunostomy with pneumobilia, stable. Agai n seen is ill-defined area of uptake within the pancreatic head (max SUV 4.8, previously 4.2) without clear CT correlate. No other areas of pathologic FDG uptake within the abdomen or pelvis. Physiolo gic activity within the gastrointestinal and genitourinary system. PROXIMAL EXTREMITIES: Activity along the right arm without CT correlate, likely injection site relate d. No other areas of abnormal metabolic activity in the soft tissues of the lower extremities. BONES: No abnormal metabolic activity in the visualized skeleton. ADDITIONAL CT FINDINGS: As above. OTHER: Background hepatic activity max SUV 2.5 IMPRESSION: 1. Asymmetric diffuse uptake throughout the left conservation worker and neck musculature withou t CT correlate (max SUV 4.6-7.2) possibly treatment related or related to muscle use/injury. 2. Postsurgical changes from hepaticojejunostomy. Again seen is the ill-defined uptake within the r egion of the pancreatic bed (max SUV 4.8, previously 4.2) without clear CT correlate. Again, dedicat ed pancreatic protocol CT could be considered for further evaluation. 3. No other areas of pathologic uptake throughout the remainder of the exam. TECHNICAL DOCUMENTATION: JOB ID: [id number] 2010 [employer]- All Rights Reserved Reading location - IP/workstation name: [email or web address]
== END ==
LOC: RAD 08:37
PROVIDERS: ATTEND Radiology Radiation Oncology
DX: C07 Malignant neoplasm of parotid gland (principal)
CPT/HCPCS: 78815; A9552

== ENCOUNTER → 2020-01-16 | Outpatient (CLI) | payer MEDICARE, OTHER ==
--- NOTE | 2020-01-16 12:41 | RADIOLOGY REPORT (SQ) ---
EXAM DESCRIPTION: CT ABDOMEN COMBO IMAGES COMPLETED DATE/TIME: 01/16/2020 10:24 am REASON FOR STUDY: (R94.8)ABNORMAL RESULTS OF FUNCTION STUDIES OF ORGANS AND SYSTEMS R94.8 ABNORMAL RESULTS OF FUNCTION STUDIES OF ORGANS AND SYS COMPARISON: PET from 12/30/2019. TECHNIQUE: CT scan of the abdomen performed with and without intravenous contrast, and oral contras t. Contrasted imaging performed using helical scanning technique with dynamic intravenous contrast in jection. Images reviewed with lung, soft tissue, and bone windows. Reconstructed coronal and sagittal MPR images reviewed. Delayed images for evaluation of the urinary system also acquired and evaluated . All images stored on PACS. All CT scanners at this facility use dose modulation, iterative reconstruction, and/or weight based d osing when appropriate to reduce radiation dose to as low as reasonably achievable (ALARA). [facility]: Dose Right [facility]: CareDose [facility]: Dose Right [facility]: Teradose 4D [facility]: [place] [employer] CONTRAST TYPE AND DOSE: 41 mL Omnipaque 350- low osmolar. RENAL FUNCTION: GFR > 60. RADIATION DOSE: CT Rad equipment meets quality standard of care and radiation dose reduction techniq ues were employed. CTDIvol: 6.6 - 19.7 mGy. DLP: 921 mGy-cm. LIMITATIONS: None. FINDINGS: NONCONTRASTED IMAGING: No nephrolithiasis or evidence of hepatic steatosis. POSTCONTRASTED IMAGING: LOWER CHEST: No acute findings. LIVER: Pneumobilia. In the posterior aspect of the right hepatic lobe (image 39 of series 5) there i s a geographic area of hyperenhancement that equilibrates with the remainder of hepatic parenchyma on the portal venous phase - the area could represent a vascular shunt. There is no hepatic mass. SPLEEN: No splenomegaly or splenic mass. PANCREAS: Coarse parenchymal calcifications in the pancreatic head, neck and uncinate process. There is no pancreatic mass, pancreatic ductal dilatation, peripancreatic fluid collection or peripancreat ic inflammation. GALLBLADDER: The gallbladder is surgically absent. ADRENAL GLANDS: Mild diffuse nodular enlargement of the left adrenal gland. There is no adrenal mass . RIGHT KIDNEY AND URETER: No solid mass or hydronephrosis. LEFT KIDNEY AND URETER: No solid mass or hydronephrosis. VASCULATURE: No aneurysm or dissection of the abdominal aorta. There are eccentric calcified and no ncalcified atheromatous plaques in the proximal celiac that result in less than 50% luminal stenosis. The SMA renal arteries and PATSY are patent. The splenic vein is occluded and there are prominent co llateral vessels in the upper abdomen. The portal vein and SMV are patent. RETROPERITONEUM: No retroperitoneal adenopathy, hemorrhage or mass. BOWEL AND PERITONEAL CAVITY: Status post hepaticojejunostomy. There is no bowel obstruction or bowel wall thickening. APPENDIX: Normal. ABDOMINAL WALL: No mass or hernia. BONES: Degenerative spondylosis of the lumbar spine. There is no fracture or osseous lesion. OTHER: No other finding. IMPRESSION: 1. Status post hepaticojejunostomy with pneumobilia. There is no anatomic correlate for the focus of mild FDG uptake in the region of the pancreatic head. 2. Other secondary findings as detailed above. TECHNICAL DOCUMENTATION: JOB ID: [id number] Quality ID # [id number]: Final reports with documentation of one or more dose reduction techniques (e.g., Au tomated exposure control, adjustment of the mA and/or kV according to patient size, use of iterative reconstruction technique) 2010 [employer]- All Rights Reserved Reading location - IP/workstation name: [email or web address]
== END ==
LOC: RAD 01-14 13:40
PROVIDERS: ATTEND Family Medicine
DX: R94.8 Abnormal results of function studies of other organs and systems (principal)
CPT/HCPCS: 74170; 82565

== ENCOUNTER → 2020-03-30 | Outpatient (CLI) | payer MEDICARE, OTHER ==
--- NOTE | 2020-03-30 15:54 | RADIOLOGY REPORT (SQ) ---
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 COMPARISON: PET CT, 12/30/2019. RADIONUCLIDE AND DOSE: 12.36 mCi F18 FDG The route of agent administration: Intravenous FASTING BLOOD SUGAR: 99 mg/dl CONTRAST TYPE AND DOSE: No CT contrast given. TECHNIQUE: Blood glucose level was verified. Above dose of FDG was injected intravenously. 2-D seg mented attenuation correction images were obtained from the base of the skull to the midthighs. Nonc ontrast CT images were obtained for attenuation correction and fusion with emission images. CT image s were performed without oral or intravenous contrast and are not sensitive for parenchymal lesions. A series of overlapping emission PET images were obtained. [facility] by the radiologist. Images stored on PACS. LIMITATIONS: None. FINDINGS: HEAD AND NECK: Status post left parotidectomy. 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 There is mild diffuse skin thickening without focal uptake. This is likely related to prev ious radiation therapy. No focal CT abnormality to correspond. No cervical adenopathy or hypermetab olic lymph nodes. Diffuse mucosal thickening in the right maxillary sinus without significant hyperm etabolic activity, unchanged from prior. Normal physiologic activity in the brain. CHEST: No areas of abnormal metabolic activity in the chest. Right apical pleural and parenchymal sc arring is stable. No suspicious pulmonary nodules. ABDOMEN AND PELVIS: Postoperative changes of hepaticojejunostomy with persistent pneumobilia, stable from prior examination. Re- demonstrated mild hypermetabolic activity in the pancreatic body near th e anastomosis with the biliary duct, SUV max 3.7, previously 4.8, without focal CT correlate although evaluation is somewhat limited without IV contrast. No pancreatic ductal dilation or peripancreatic inflammation. Expected physiologic activity is present in the genitourinary system and bowel. Back ground hepatic FDG activity SUV 2.1. PROXIMAL LOWER EXTREMITIES: No areas of abnormal metabolic activity in the soft tissues of the lower extremities. BONES: No abnormal metabolic activity in the visualized skeleton. 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 OTHER: No other significant findings. IMPRESSION: 1. No significant interval change. He was mild hypermetabolic activity in the left neck musculatures may be related to he was posttreatment change or muscle use/injury, overall stable from previous exa mination. No evidence of recurrent or metastatic disease in the chest, abdomen or pelvis. 2. Persistence ill-defined uptake within the region of the pancreatic body near the resection anastom osis at the biliary ducts. Finding is nonspecific and stable from previous. Consider further evalua tion with pancreatic protocol MRI or CT as clinically indicated. TECHNICAL DOCUMENTATION: JOB ID: [id number] 2010 [employer]- All Rights Reserved Reading location - IP/workstation name: [email or web address]
== END ==
LOC: RAD 07:34
PROVIDERS: ATTEND Radiology Radiation Oncology
DX: C07 Malignant neoplasm of parotid gland (principal)
CPT/HCPCS: 78815; A9552

== ENCOUNTER 2020-08-25 12:45 | Day surgery (SDC) | payer MEDICARE, OTHER ==
[~2020-08-25 12:45] MED LIST: CHONDR SU A NA/HYALUR INTRAOC KIT (SURGICARE) ONE; DORZOLAMIDE HCL 2%/TIMOLOL MALEAT 0.5% OPH SOLN 10 ML OS PRN; EPINEPHRINE INJ/PF 1 MG/1 ML AMPULE ONE; HYALURONATE SODIUM SYRINGE 0.55 ML ONE; KETOROLAC TROMETHAMINE 0.45% 4 DROP/0.4 ML DROPERETTE OS PRN; LIDOCAINE 1%/PHENYLEPHRINE 1.5% 1 ML VIAL ONE; MOXIFLOXACIN 1 MG/ML-BSS OPH SOLN 1 ML VIAL ONE; PREDNISOLONE ACETATE 1% OPH SUSP 5 ML OS PRN
[2020-08-25] MEDS ORDERED: MIDAZOLAM 2 MG/2 ML INJ ONE (13:15)
[2020-08-25] MEDS: TROPICAMIDE 1% OPH SOLN 15 ML OS PRN ×3 (13:55→14:15)
[2020-08-25] MEDS: TETRACAINE HCL 0.5% OPH SOLN 4 ML OS PRN ×3 (13:55→14:18)
[2020-08-25] MEDS: CYCLOPENTOLATE 0.2%/PHENYLEPHRINE 1% OPH SOLN 2 ML OS PRN ×3 (13:56→14:15)
[2020-08-25] MEDS: BESIFLOXACIN HCL 0.6% OPH SUSP 5 ML BOTTLE OS PRN ×3 (13:56→14:42)
[2020-08-25] MEDS: ALBUTEROL SULFATE HFA (90 MCG/PUFF) 8 GM MDI IH ONE ×2 (14:00→14:15)
--- NOTE | 2020-08-25 16:03 | Operative Report ---
Operative Report-[facility] Operative Report: DATE OF SURGERY: August 25, 2020 PREOPERATIVE DIAGNOSIS: NUCLEAR CATARACT, LEFT EYE. Glaucoma POSTOPERATIVE DIAGNOSIS: NUCLEAR CATARACT, LEFT EYE. Glaucoma PROCEDURE PERFORMED: PHACOEMULSIFICATION WITH POSTERIOR CHAMBER INTRAOCULAR LENS IMPLANT, LEFT EYE. minimally invasive glaucoma surgery with dilation of the aqueous outflow and goniotomy SURGEON: Tyler Valdez DO MEDICATIONS AND ANESTHESIA: Versed: IV Versed Tetracaine drops: 1 to 2 drops given as needed COMPLICATION: None INDICATIONS FOR SURGERY: Medical necessity: Best corrected visual acuity worse than 20/40 secondary to cataracts with impairment of ability to carry out needs or desired activities, blurred vision, visual distortion, reduced contrast sensitivity and/or glare with association functional impairment and supporting documentation/testing, and cataracts causing symptomatic impairment of visual functions not corrected with tolerable changes in glasses or contact lenses interfering with activities of daily life. PROCEDURE: Consent: The risks, benefits and alternatives of this procedures was discussed with the patient. The patient read and signed the consent forms, was identified and was seated in the exam chair. IOL: MX 60 E 19.5 IOL Diopters: Phacoemulsification with posterior chamber intraocular lens implant: The face was prepped with 5% povidone iodine solution, and a few drops of 5% povidone iodine solution was instilled into the inferior fornix. A non-fenestrated drape was placed over the eye and the lids were parted with the speculum. A paracentesis was made with a 15 degree blade, and 1% lidocaine MPF followed by viscoelastic was injected into the anterior chamber. A 2.4 mm metal micro- keratome was used to create a temporal clear corneal incision. A circular anterior capsulorrhexis was created, followed by hydro-dissection and hydro- delineation. The phacoemulsification hand piece was inserted and the nucleus was removed with the Phaco chop technique. The irrigation-aspiration hand piece was used to remove the residual cortex, and vacuum the posterior capsule. The capsular bag was inflated and viscoelastic and the above-mentioned IOL was injected into the eye with care to insert both leaning and trailing haptics in the capsular bag. The irrigation/aspiration hand piece was reinserted to remove residual viscoelastic from the capsular bag and anterior chamber. The corneal incision was hydrated, and anterior chamber was inflated with sterile BSS via the paracentesis site, and found to be watertight. In addition the Omni device was used to perform dilation of the aqueous outflow and goniotomy of the inferior 180 degrees. Postop medication:1 drop of prednisolone into operative by followed by 1 drop of Cosopt into operative eye followed by 1 drop of Besivance intraoperative by Other:
== END 2020-08-25 15:20 | disposition home or self-care (01) ==
LOC: SC 12:45
PROVIDERS: ATTEND Ophthalmology
DX: H25.12 Age-related nuclear cataract, left eye (principal); H40.1121 Primary open-angle glaucoma, left eye, mild stage; F17.210 Nicotine dependence, cigarettes, uncomplicated; J44.9 Chronic obstructive pulmonary disease, unspecified; I10 Essential (primary) hypertension; R73.03 Prediabetes
CPT/HCPCS: 66984; 66174; V2632; J2250; J3490 ×4; A9270 ×2; J0171